=== PATIENT | male | born 1980 | race Caucasian/White ===

== ENCOUNTER 2022-04-13 02:05 | Emergency (ER) | payer MEDICARE, MEDICAID, SELFPAY ==
[2022-04-13 02:31] VITALS: BP 135/101; PULSE 118; RESP 18; TEMP 36.7; O2SAT 95; BMI 36.9
--- NOTE | 2022-04-13 02:48 | PC.NURSE ---
please see paper charting for q15m assessments, patient in line of sight of this nurse and nursing station
[2022-04-13 02:59] LABS: Add Urine Microscopic? NO; Charge for UA Resulting for Rev
[2022-04-13 03:00] LABS: Bilirubin Urine Negative (Negative); Blood Urine Negative (Negative); Glucose Urine UA Negative (Normal); Ketones Urine Negative (Negative); Leukocyte Esterase Urine Negative (Negative); Nitrate Urine Negative; Protein Urine Negative; Urine Appearance Clear (CLEAR); Urine Color Yellow (Yellow); Urobilinogen Urine 0.2 mg/dL (Negative)
[2022-04-13 03:10] LABS: Amphetamines Screen Urine Negative (Negative); Barbiturates Screen Urine Negative (Negative); Benzodiazepines Screen Urine Negative (Negative); Cocaine Screen Urine Negative (Negative); Opiate Screen Urine Negative (Negative); PCP Screen Urine Negative (Negative); THC Screen Urine Negative (Negative)
--- NOTE | 2022-04-13 03:18 | PC.NURSE ---
Dr Wallace at bedside at 0251 speaking with patient. during conversation patient became hostile, stood up, started to yell and become aggressive and charge dr wallace. dr wallace de escalated situation, patient returned to bed but continued to be very angry. 20mg geodon IM ordered, entered room at 0300 to administer, patient began to yell and repeatedly state 'no and attempt to termite exterminator helper bed. this nurse redirected the conversation to if he is in pain, patient states pain to bilat ankles. offered patient food and beverage which he accepted. asked patient what medications typically helped him in the past for psychosis, pt states several inappropriate and unrelated statements, then states haldol gives him bone pain and that geodon makes him put mugs in the back gray cloth washer and change colors and then his face flushed and he began yelling. questioned patient about seroquel, states that he has taken in the past but it isnt working now because he hasnt taken any. offered patient a pill form of medication versus IM, patient is agreeable, PO medication administered at 0318.
[2022-04-13] MEDS: OLANZapine 10 mg ODT 20 MG PO (03:19)
--- NOTE | 2022-04-13 03:26 | PC.NURSE ---
second meal and 3rd apple juice given to patient, patient is walking in room, cooperative.
--- NOTE | 2022-04-13 03:40 | PC.NURSE ---
patient laying in bed quietly watching television, ate 100% of all food and drink given.
--- NOTE | 2022-04-13 03:47 | PC.NURSE ---
sudden loud yelling from patient as he is laying in bed noted, patient is yelling at people that are not in the room. dr wallace made aware of visual and auditory hallucinations.
--- NOTE | 2022-04-13 03:49 | PC.NURSE ---
patient returned to quietly resting and watching television. 1:[address] since arrival to ed, actively monitoring and documenting activity.
--- NOTE | 2022-04-13 04:00 | PC.NURSE ---
patient making explicit gestures to staff through glass doors of exam room.
--- NOTE | 2022-04-13 04:06 | ED.C_ITS ---
HPI - Psych General: Chief Complaint: Psychiatric Symptoms Stated Complaint: MHE Time Seen by Provider: 04/13/22 02:43 Source: patient and EMS History of Present Illness: 41-year-old male with essentially an unknown history at this point. He has never been at this facility before. He endorses a history of schizophrenia to me. He presents by EMS. They were called from the [employer] truck stop up the road. They report that he is acting quite bizarrely and making strange statements. He has not endorsed any suicidality or homicidality. He denies any recent illness or fever. He admits to multiple hospitalizations in the past. He also notes that he is post to be taking Seroquel and a triglyceride medication , but that he has stopped them sometime ago. On my interview, he continues to make bizarre statements about different places across the country including [place] in [place]. He endorses persecutory ideations of being sodomized, people shooting him up with heroin, being attacked by multiple unknown people, etc. He seems to flow from 1 thing to the other without emotion. There is some word salad and sprinkled in amongst more normal statements such as I want some pain medication. I do not want hydros or the 3 liquids . MD complaint: altered mental status Onset (ago): unknown Duration: constant Relieving factors: none Exacerbating factors: none Context: not taking psychiatric medications Associated psychiatric symptoms: auditory hallucinations, visual hallucinations and delusions Associated symptoms: Reports delusions Treatments prior to arrival: none Review of Systems Const: Denies: fever(s) Eyes: Denies: change in vision ENMT: Denies: throat pain Card: Denies: chest pain Resp: Denies: dyspnea GI: Denies: abdominal pain or vomiting Musc: Reports: back pain and extremity pain Physical Exam Const: GENERAL APPEARANCE: cooperative (somewhat); not ill appearing and not frail appearing HENMT: COMMON NORMALS: normocephalic, atraumatic and Normal external nose present HEAD & SCALP: normocephalic and atraumatic FACE & SINUS: normal facial exam and face symmetric NOSE: Normal external nose present Eye: COMMON NORMALS: Equal, round and reactive pupils present and EOMs intact bilaterally PUPIL: Yes Equal, round and reactive pupils present Neck/C-Spine: COMMON NORMALS: full ROM GENERAL: Yes trachea midline Chest: CHEST: Yes Symmetrical chest wall rise Resp: COMMON NORMALS: normal respiratory effort, No use of accessory muscles and clear to auscultation bilaterally AUSCULTATION: clear to auscultation bilaterally Cardio: COMMON NORMALS: regular rate and regular rhythm RATE: regular rate RHYTHM: regular rhythm GI: COMMON NORMALS: Normal to inspection, nondistended, normoactive bowel sounds present and Soft to palpation PALPATION: Yes Soft to palpation Extremity: GENERAL: Yes edema (mild) Neuro: LEAH COMA SCALE: document GCS findings [place] coma scale eye opening: Spontaneous [place] coma scale verbal response: Confused [place] coma scale motor response: Obey commands [place] coma scale total score: 14 CRANIAL NERVES: Yes CN normal except as noted GAIT: Yes Normal gait present MOTOR EXAM: Normal motor muscle tone present throughout Psych: APPEARANCE: Yes unkempt ATTITUDE: Yes engaged and Yes agitated (at times) ACTIVITY/MOTOR BEHAVIOR: Yes appropriate eye contact, Yes psychomotor agitation and Yes fidgeting SPEECH: Yes loud and Yes Pressured speech present MOOD & AFFECT: Yes irritable and Yes expansive affect THOUGHT PROCESS: Circumstantial thought process present, disorganized and Word salad present (speech) THOUGHT CONTENT: No Suicidality present, No Homicidality present, Yes delusions and Yes Hallucination(s) present ATTENTION/CONCENTRATION: Yes attention grossly intact and Yes concentration grossly intact MEMORY /COGNITION: Yes memory grossly intact and Yes cognition grossly intact INSIGHT: Limited insight present (Psych) JUDGEMENT: Limited judgement present (Psych) Course Vital Signs: Vital signs: Vital Signs Temperature 98.0 F 04/13/22 02:31 Pulse Rate 118 H 04/13/22 02:31 Respiratory Rate 18 04/13/22 02:31 Blood Pressure 135/101 04/13/22 02:31 Pulse Oximetry 95 04/13/22 02:31 Oxygen Delivery Me thod 04/13/22 02:31 [facility] - Psych Medical Decision Making Patient refused oral medication. He was given 20 mg of oral Zyprexa Zydis. He has been calm since this time. Urinalysis is negative. Urine drug screen is negative. Serum lab work is pending. Medically he appears stable. The patient became agitated when we asked to draw his blood. He continues to deny suicidal or homicidal ideation. I went in to interview the patient again. I offered him a bed in the neuropsychiatric unit, to treat his acute on chronic psychosis. Initially, the patient agreed to admission. When told he had a consent to blood draw for admission, he recanted his consent. He asked to be discharged. He is nonviolent. He did become agitated and raise his voice. He was given his close. He left before acquiring his discharge papers. I expect we will see him back. Lab Data Laboratory Results Urine Color Yellow (Yellow) 04/13/22 02:35 Urine Appearance Clear (CLEAR) 04/13/22 02:35 Urine pH 6.0 (5-7) 04/13/22 02:35 Ur Specific [place] 1.010 (1.005-1.030) 04/13/22 02:35 Urine Protein Negative 04/13/22 02:35 Urine Glucose (UA) Negative (Normal) 04/13/22 02:35 Urine Ketones Negative (Negative) 04/13/22 02:35 Urine Blood Negative (Negative) 04/13/22 02:35 Urine Nitrate Negative 04/13/22 02:35 Urine Bilirubin Negative (Negative) 04/13/22 02:35 Urine Urobilinogen 0.2 mg/dL (Negative) 04/13/22 02:35 Ur Leukocyte Esterase Negative (Negative) 04/13/22 02:35 Urine Opiates Screen Negative ng/mL (Negative) 04/13/22 02:35 Ur Barbiturates Screen Negative ng/mL (Negative) 04/13/22 02:35 Ur Phencyclidine Scrn Negative ng/mL (Negative) 04/13/22 02:35 Ur Amphetamines Screen Negative ng/mL (Negative) 04/13/22 02:35 U Benzodiazepines Scrn Negative ng/mL (Negative) 04/13/22 02:35 Urine Cocaine Screen Negative ng/mL (Negative) 04/13/22 02:35 U Marijuana (THC) Screen Negative ng/mL (Negative) 04/13/22 02:35 Discharge Plan Discharge Patient Disposition: Home Clinical Impression: Chronic schizophrenia Discharge Orders: Discharge ED (Routine); Ordered 04/13/22 Ordered By: Chris Pastrana Patient Instructions: Psychotic Disorder (ED) Coding Level of Care Code ED Svp Business Development for Harryg Fwd Exam Comprehensive
--- NOTE | 2022-04-13 04:45 | PC.NURSE ---
attempted blood draw, patient refused, will reattempt.
--- NOTE | 2022-04-13 05:15 | PC.NURSE ---
dr wallace speaking with patient at this time, patient uncooperative with blood draw.
--- NOTE | 2022-04-13 05:27 | PC.NURSE ---
patient to be d/c per order of dr wallace. patient given seroquel rx and belongings back, and walked out of the facility with this nurse and security
== END 2022-04-13 05:29 | disposition home or self-care (01) ==
PROVIDERS: Emergency Provider Emergency Medicine
DX: F20.9 Schizophrenia, unspecified (principal)
CPT/HCPCS: 80306; 81003; 99283

== ENCOUNTER 2022-04-15 13:50 | Inpatient (IN) | payer MEDICARE, MEDICAID, SELFPAY ==
[2022-04-15 13:59] VITALS: BP 121/70; PULSE 129; RESP 18; TEMP 36.6; O2SAT 94; BMI 29.5
--- NOTE | 2022-04-15 14:06 | ED_ITS ---
HPI - General Adult General: Chief complaint: Psychiatric Symptoms Stated complaint: PSHR EVAL Time Seen by Provider: 04/15/22 13:58 History of Present Illness: HPI: [41]yo patient w/ hx of schizophrenia emergency room for evaluation of worsening psychosis. Patient tells me that he was drinking earlier today On the street when merchant police brought him to the emergency room. Patient tells me he was seen yesterday night and in the emergency room. Patient tells me the last time he drank was earlier today. He reports that aliens are trying to abduct me. On arrival, the patient is AAOx3 and cooperative with my evaluation. No focal complaints of chest pain, shortness of breath, palpitations, N/V, focal GI/ complaints. Tells me that yesterday night he had 4-5 thoughts of hurting himself. Patient does not have any active plan. Patient denies any homicidal ideation. Onset: acute on chronic Duration: ongoing Location: home Severity: severe Associated symptoms: Deny chest pain, dyspnea, nausea, rash, palpitations or vomiting Review of Systems Const: Denies: fever(s) or chills Eyes: Denies: change in vision ENMT: Denies: mouth pain Card: Denies: chest pain or palpitations Resp: Denies: dyspnea or non-productive cough GI: Denies: abdominal pain, nausea, vomiting or diarrhea : Denies: dysuria Musc: Denies: extremity pain Skin/Breast: Denies: rash or new lesions Neuro: Denies: weakness in extremities Psych: Reports: other (+psychosis) Oli/Lymph: Denies: easy bruising PFS ED PFSH: Medical History Schizophrenia Social History Smoking and tobacco status: never smoked Alcohol intake: never Substance/Drug Use: never Physical Exam Const: COMMON NORMALS: alert HENMT: COMMON NORMALS: atraumatic HEAD & SCALP: atraumatic MOUTH: moist mucous membranes not abnormal Eye: COMMON NORMALS: EOMs intact bilaterally and conjunctivae normal CONJUNCTIVA: Yes conjunctivae normal Neck/C-Spine: COMMON NORMALS: full ROM and supple Resp: COMMON NORMALS: normal respiratory effort and clear to auscultation bilaterally AUSCULTATION: clear to auscultation bilaterally Cardio: RATE: tachycardic GI: COMMON NORMALS: Soft to palpation and non-tender PALPATION: Yes Soft to palpation OTHER: No focal TTP. NO guarding rebound, guarding, rigidity. No CVA tenderness to percussion. Neg Carrillo/Neg McBurney's point tenderness, no suprabupic tenderness to palpation. Extremity: COMMON NORMALS: full ROM Neuro: SENSORIUM/ORIENTATION: Yes alert MOTOR EXAM: No Abnormal motor strength present and Other motor observations present (no focal motor deficits) Psych: COMMON NORMALS: speech normal SPEECH: Yes normal speech MOOD & AFFECT: Yes anxious Course Vital Signs: Vital signs: Vital Signs Temperature 97.8 F 04/15/22 13:59 Pulse Rate 129 H 04/15/22 13:59 Respiratory Rate 18 04/15/22 13:59 Blood Pressure 121/70 04/15/22 13:59 Pulse Oximetry 94 04/15/22 13:59 Oxygen Delivery Me thod 04/15/22 13:59 MDM - General Adult Medical Decision Making [41]yo patient w/ hx of schizophrenia presenting for psychosis and fixed delusion about alien abduction. HDS with moderate tachycardia, exam within normal limit. She is AAO x2 answer my question. However patient has fixed delusions about healing abduction. Please officer, patient has not been taking care of himself. Patient does not exhibit any signs of tremulousness or hyperdynamic vital signs to suggest delirium tremens or acute alcohol withdrawal. Patient received IVF and thiamine in the ED. Clinically the patient displays no overt toxidrome; they are well appearing, with low suspicion for toxic ingestion given history and exam. Symptoms unlikely 2/2 anemia, hypothyroidism, infection, or ICH. Workup: CBC, CMP, Lipase, salicylate/tylenol, serum ethanol, UDS, CT head Lab findings: wnl, CT head negative for any acute findings [3:330pm] On reassessment, labs and workup wnl. Patient is hemodynamically stable with no acute medical complaints. Case discussed with psychiatric provider Dr. Poon at [facility] psych inpatient with recommendation for admission Disposition: Psych Lab Data : 04/15/22 10:15 04/15/22 10:[address] 04/15/22 14:10 IMPRESSION: No acute intracranial findings. Laboratory Results WBC 10.9 10^3/uL (4.0-10.0) H 04/15/22 10:15 RBC 4.91 10^6/uL (4.1-5.3) 04/15/22 10:15 Hgb 15.5 g/dL (11.7-16.6) 04/15/22 10:15 Hct 45.4 % (42.0-52.0) 04/15/22 10:15 MCV 92.5 fl (80-94) 04/15/22 10:15 MCH 31.6 pg (28.0-34.0) 04/15/22 10:15 MCHC 34.1 g/dL (30.0-36.0) 04/15/22 10:15 RDW 12.2 % (12.1-15.1) 04/15/22 10:15 Plt Count 252 10^3/cmm (130-400) 04/15/22 10:15 MPV 10.6 fL (7.4-10.4) H 04/15/22 10:15 Neut % (Auto) 69.9 % 04/15/22 10:15 Lymph % (Auto) 20.8 % 04/15/22 10:15 Nance % (Auto) 7.1 % 04/15/22 10:15 Eos % (Auto) 1.2 % 04/15/22 10:15 Baso % (Auto) 0.6 % 04/15/22 10:15 Neut # (Auto) 7.62 10^3/uL (1.8-7.7) 04/15/22 10:15 Lymph # (Auto) 2.3 10^3/uL (0.8-4.8) 04/15/22 10:15 Nance # (Auto) 0.8 10^3/uL (0.2-0.9) 04/15/22 10:15 Eos # (Auto) 0.1 10^3/uL (0.0-0.8) 04/15/22 10:15 Baso # (Auto) 0.1 10^3/uL (0.0-0.1) 04/15/22 10:15 Nucleated RBC % (auto) 0 % 04/15/22 10:15 Nucleated RBCs # 0.0 /100WBC 04/15/22 10:15 Sodium 136 mmol/L (136-145) 04/15/22 10:15 Potassium 3.5 mmol/L (3.5-5.1) 04/15/22 10:15 Chloride 96 mmol/L (98-107) L 04/15/22 10:15 Carbon Dioxide 25 mmol/L (22-29) 04/15/22 10:15 Anion Gap 18.5 (5-19) 04/15/22 10:15 BUN 11 mg/dL (6-20) 04/15/22 10:15 Creatinine 0.8 mg/dL (0.7-1.2) 04/15/22 10:15 GFR Calculation 106.5 mL/min (90-130) 04/15/22 10:15 Glucose 126 mg/dL (65-115) H 04/15/22 10:15 Glucose 127 mg/dL (65-115) H 04/15/22 10:15 Calculated Osmolality 283 mOsm/kg (285-295) L 04/15/22 10:15 Calcium 9.2 mg/dL (8.5-10.5) 04/15/22 10:15 Total Bilirubin 0.2 mg/dL (0.15-1.2) 04/15/22 10:15 AST 14 U/L (0-40) 04/15/22 10:15 ALT 16 U/L (0-41) 04/15/22 10:15 Alkaline Phosphatase 85 U/L (40-130) 04/15/22 10:15 Total Protein 6.9 g/dL (6.6-8.7) 04/15/22 10:15 Albumin 4.2 g/dL (3.5-5.2) 04/15/22 10:15 Globulin 2.7 g/dL (1.3-4.6) 04/15/22 10:15 Lipase 18 U/L (13-60) 04/15/22 10:15 TSH 1.32 uIU/mL (0.27-4.20) 04/15/22 10:15 Free T4 1.11 ng/dL (0.82-1.77) 04/15/22 10:15 Salicylates 0.4 mg/dL (3-10) L 04/15/22 10:15 Acetaminophen < 5.0 ug/mL (10-30) L 04/15/22 10:15 Ethyl Alcohol < 10 mg/dL (0-10) 04/15/22 10:15 Imaging Data Other Imaging: Radiologist's impression: [facility] [address] [place] [address] CT Scan Report Signed Patient: Manjinder Emmanuel Unit #: [id number] : [id number] Age/Sex: 41 / M ADM Date: 04/15/22 Loc: ER Room/Bed: Attending Dr: Ordering Provider/Ordering MD: Kalen Carrizales MD Date of Service: 04/15/22 Procedure(s): CT head wo con* [id number] Accession Number(s): [id number] Report Number: [id number] WS: [id number] CT HEAD TECHNIQUE: Noncontrast CT of the head obtained from the skullbase to the vertex. CLINICAL INFORMATION: ams COMPARISON: None. DLP: 1139.[address] scans at [facility] use at least one of these dose optimization techniques: automated exposure control; mA and/or kV adjustment per patient size (includes targeted exams where dose is matched to clinical indication); or iterative reconstruction. FINDINGS: No evidence of intracranial hemorrhage or mass effect. Ventricular system and basal cisterns are patent. No extra-axial fluid collections. No evidence of mass or mass effect. Normal mccann-white differentiation. Paranasal sinuses and mastoid air cells are well aerated. .Normal visualized soft tissues. CT/CT head wo con* [id number] IMPRESSION: No acute intracranial findings. ? Dictated By: Armando Torres MD Signed By: Armando Torres MD Signed Date/Time: 04/15/22 1455 DD/ 1446 Discharge Plan Discharge Patient Disposition: Admitted As Inpatient Clinical Impression: Psychosis, Schizophrenia Condition: Stable Coding Level of Care Code ED Track Watchman for Chg Fwd Exam Comprehensive
--- NOTE | 2022-04-15 14:10 | CT_ITS ---
WS: [id number] CT HEAD TECHNIQUE: Noncontrast CT of the head obtained from the skullbase to the vertex. CLINICAL INFORMATION: ams COMPARISON: None. DLP: 1139.[address] scans at [facility] use at least one of these dose optimization techniques: automated e xposure control; mA and/or kV adjustment per patient size (includes targeted exams where dose is matc hed to clinical indication); or iterative reconstruction. FINDINGS: No evidence of intracranial hemorrhage or mass effect. Ventricular system and basal cisterns are heaton nt. No extra-axial fluid collections. No evidence of mass or mass effect. Normal mccann-white different iation. Paranasal sinuses and mastoid air cells are well aerated. .Normal visualized soft tissues. CT/CT head wo con* [id number] IMPRESSION: No acute intracranial findings.
[2022-04-15 14:22] LABS: Basophils # 0.1 10^3/uL (0.0-0.1); Basophils % 0.6 %; Eosinophils # 0.1 10^3/uL (0.0-0.8); Eosinophils % 1.2 %; Hematocrit 45.4 % (42.0-52.0); Hemoglobin 15.5 g/dL (11.7-16.6); Lymphocytes # 2.3 10^3/uL (0.8-4.8); Lymphocytes % 20.8 %; Mean Corpuscular HGB Conc 34.1 g/dL (30.0-36.0); Mean Corpuscular Hemoglobin 31.6 pg (28.0-34.0); Mean Corpuscular Volume 92.5 fl (80-94); Mean Platelet Volume 10.6 fL (7.4-10.4); Monocytes # 0.8 10^3/uL (0.2-0.9); Monocytes % 7.1 %; Neutrophils # 7.62 10^3/uL (1.8-7.7); Neutrophils % 69.9 %; Nucleated Red Blood Cells % 0 %; Platelet Count 252 10^3/cmm (130-400); Red Blood Count 4.91 10^6/uL (4.1-5.3); Red Cell Distribution Width 12.2 % (12.1-15.1); White Blood Count 10.9 10^3/uL (4.0-10.0)
[2022-04-15 14:44] LABS: Glucose 127 mg/dL (65-115)
[2022-04-15 14:55] LABS: Alanine Aminotransferase 16 U/L (0-41); Albumin Level 4.2 g/dL (3.5-5.2); Alkaline Phosphatase 85 U/L (40-130); Aspartate Amino Transferase 14 U/L (0-40); Blood Urea Nitrogen 11 mg/dL (6-20); Calcium 9.2 mg/dL (8.5-10.5); Carbon Dioxide 25 mmol/L (22-29); Chloride 96 mmol/L (98-107); Free T4 Free Thyroxine 1.11 ng/dL (0.82-1.77); Globulin 2.7 g/dL (1.3-4.6); Glomerular Filtration Rate 106.5 mL/min (90-130); Glucose 126 mg/dL (65-115); Lipase 18 U/L (13-60); Osmolality Calculated 283 mOsm/kg (285-295); Salicylate 0.4 mg/dL (3-10); Sodium 136 mmol/L (136-145); Thyroid Stimulating Hormone 1.32 uIU/mL (0.27-4.20); Total Bilirubin 0.2 mg/dL (0.15-1.2); Total Protein 6.9 g/dL (6.6-8.7)
[2022-04-15 14:57] LABS: Acetaminophen < 5.0 ug/mL (10-30); Alcohol Level < 10 mg/dL (0-10)
[2022-04-15 14:58] LABS: Anion Gap 18.5 (5-19); Potassium 3.5 mmol/L (3.5-5.1)
[2022-04-15] MEDS: sodium chloride 0.9% 1,000 ML 999 ML IV ×2 (15:10→16:01)
[2022-04-15 15:15] VITALS: PULSE 106; O2SAT 91
[2022-04-15 15:18] LABS: Folate Level 8.8 ng/mL (4.5-32.2)
[2022-04-15 15:58] VITALS: BP 102/63; PULSE 95; O2SAT 95
[2022-04-15 17:01] LABS: Amphetamines Screen Urine Negative (Negative); Barbiturates Screen Urine Negative (Negative); Benzodiazepines Screen Urine Negative (Negative); Cocaine Screen Urine Negative (Negative); Opiate Screen Urine Negative (Negative); PCP Screen Urine Negative (Negative); THC Screen Urine Negative (Negative)
[2022-04-15 17:13] VITALS: PULSE 92; O2SAT 97
[2022-04-15 17:49] VITALS: BP 123/73; PULSE 108; RESP 18; TEMP 36.6; O2SAT 96
--- NOTE | 2022-04-15 18:38 | PC.NURSE ---
ADMISSION NOTE 150-2 This is a 41 year old man admitted to [facility] from the ED. History of schizophrenia. Patient tells me that he was drinking earlier today. On the street when police captain senior brought him to the emergency room. Patient tells me he was seen yesterday night and in the emergency room. Patient tells me the last time he drank was earlier today. He reports that aliens are trying to abduct me. Upon arrival to the [facility] patients speech is animated at times during conversation. Pt is guarded and repeats sentences multiple times. Pt is calm and cooperative. BAL and drug screen negative.
[2022-04-15 21:01] VITALS: RESP 18
[2022-04-16 06:00] VITALS: BP 129/84; PULSE 78; RESP 17; TEMP 36.8; O2SAT 93
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
--- NOTE | 2022-04-16 11:08 | PC.NURSE ---
0800- pt declined zyprexa or haldol for symptom relief of visual hallucinations of sexual images even if there are no people
[2022-04-16 14:00] VITALS: BP 130/79; PULSE 96; RESP 15; TEMP 36.9; O2SAT 95
[2022-04-16] MEDS: OLANZapine 5 mg ODT PO (20:19)
[2022-04-16 20:44] VITALS: BP 149/95; PULSE 92; RESP 17; TEMP 36.8; O2SAT 98
[2022-04-17 06:00] VITALS: BP 165/118; PULSE 74; RESP 16; TEMP 36.5; O2SAT 97
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
[2022-04-17 14:00] VITALS: BP 150/97; PULSE 80; RESP 15; TEMP 36.6; O2SAT 96
--- NOTE | 2022-04-17 15:50 | W.PM.NPUPNS ---
Subjective NPU Subjective: Patient presents today reporting that he is open to starting Zyprexa. He was unclear whether he wanted to move to the injection but he does feel that he does okay with Zyprexa. He was really disorganized and talking about random things. He is at a point where he is unaware of his level of disorganization. As he wandered off in conversation talking about random subjects that were disconnected. Mental Status Exam MSE Comments: This is an overweight white man in hospital scrubs with adequate grooming and limited eye contact. At times turning completely away or significantly diverting his eyes. No abnormal movements except for mild psychomotor retardation. Cooperative with exam in mild distress. Speech was limited and decreased rate and decreased volume. Mood described as Okay , affect is very odd. Thought process, disorganized. Thought content: patient denies suicidal or homicidal ideation, no delusions reported but delusions noted, and endorses auditory and visual hallucinations but would not answer if he was experiencing them currently. Attention and concentration are mostly intact and memory appeared mostly reliable but none were formally tested. He is alert and oriented three times. Insight and judgment are impaired. Impulse control is impaired. Vitals/I&O/Wt Last Vital Signs Temp 98 F 04/17/22 14:00 Pulse 80 04/17/22 14:00 Resp 15 04/17/22 14:00 BP 150/97 04/17/22 14:00 Pulse Ox 96 04/17/22 14:00 O2 Del Method 04/15/22 17:50 Data NPU : 04/15/22 10:15 04/15/22 10:15 A&P Assessment and plan (1) Chronic schizophrenia: (2) Psychosis: (3) Schizophrenia: Plan This is a 41 year old white man with a history of trauma and genetic loading for mental health and addiction issues who present very disorganized reporting he had drank and it was recommended that he come to the hospital by someone. 1. Continue current medications. Start Zyprexa 10 mg p.o. nightly with goal to transfer him over to Zyprexa Relprevv. 2. Encourage individual, group and milieu therapy 3. Continue q-15 minute check for safety 4. Recommend sober living treatment at the highest level of care to which the patient is willing to commit. Involuntary Hold Information 96 Hour Hold: 96 Hour Involuntary Admission: No Attestations NPU Medical Necessity Statement*: Inpatient hospitalization is medically necessary and the clinically appropriate intervention at this time. We will monitor medications and make changes as indicated. Likely length of stay is three to five days. Coding Level of Care Code Acute Telephone Order Clerk Room Service for [facility] Fwd Diagnoses Chronic schizophrenia F20.9 Psychosis F29 Schizophrenia F20.9
--- NOTE | 2022-04-17 18:07 | PC.NURSE ---
pt is highly concerned about not getting social security direct pay card that he lost. this nurse found number to call. customer service for [employer] is [phone]. pt given number and will call. another person was on the phone, so this nurse told pt staff would help either this pm or tomorrow am to help pt get ahold of them to cancel previous card. however, it is unsure where the new card will be sent to.
[2022-04-17] MEDS: OLANZapine 10 mg TABLET PO (20:22)
[2022-04-17 20:25] VITALS: BP 142/81; PULSE 87; RESP 18; O2SAT 95
[2022-04-18 06:00] VITALS: BP 143/95; PULSE 84; RESP 18; O2SAT 98
[2022-04-18] MEDS: nicotine 2 mg Gum BUCCAL ×2 (11:44→14:16)
[2022-04-18 14:00] VITALS: BP 134/90; PULSE 103; RESP 16; TEMP 36.6; O2SAT 97
--- NOTE | 2022-04-18 15:17 | P.NPUPN_ITS ---
Subjective NPU Subjective: Patient presents today continuing to be disorganized but having some spontaneous functioning and behaviors. He asking about the medication we discussed getting some regular doses of Zyprexa in before he made any judgment about his efficacy. He had some disorganized ranting about his travels and going to different places ended up with confusing talk. Mental Status Exam MSE Comments: This is an overweight white man in hospital scrubs with adequate grooming and limited eye contact. At times turning completely away or significantly diverting his eyes. No abnormal movements except for mild psych omotor retardation. Cooperative with exam in mild distress. Speech was limited and decreased rate and decreased volume. Mood described as Okay , affect is very odd. Thought process, disorganized. Thought content: patient denies suicidal or homicidal ideation, no delusions reported but delusions noted, and endorses auditory and visual hallucinations but would not answer if he was experiencing them currently. Attention and concentration are mostly intact and memory appeared mostly reliable but none were formally tested. He is alert and oriented three times. Insight and judgment are impaired. Impulse control is impaired. Vitals/I&O/Wt Last Vital Signs Temp 98.3 F 04/18/22 21:07 Pulse 88 04/18/22 21:07 Resp 18 04/18/22 21:07 BP 132/77 04/18/22 21:07 Pulse Ox 95 04/18/22 21:07 O2 Del Method 04/18/22 06:00 Data NPU : 04/15/22 10:15 04/15/22 10:15 A&P Assessment and plan (1) Chronic schizophrenia: (2) Psychosis: (3) Schizophrenia: Plan This is a 41 year old white man with a history of trauma and genetic loading for mental health and addiction issues who present very disorganized reporting he had drank and it was recommended that he come to the hospital by someone. 1. Continue current medications. Started Zyprexa 10 mg p.o. nightly with goal to transfer him over to Zyprexa Relprevv. 2. Encourage individual, group and milieu therapy 3. Continue q-15 minute check for safety 4. Recommend sober living treatment at the highest level of care to which the patient is willing to commit. Involuntary Hold Information 96 Hour Hold: 96 Hour Involuntary Admission: No Attestations NPU Medical Necessity Statement*: Inpatient hospitalization is medically necessary and the clinically appropriate intervention at this time. We will monitor medications and make changes as indicated. Likely length of stay is 7-10 days. Coding Level of Care Code Acute Protective Signal Repairer Helper for g Fwd Diagnoses Chronic schizophrenia F20.9 Psychosis F29 Schizophrenia F20.9
[2022-04-18] MEDS: OLANZapine 10 mg TABLET PO (20:29)
[2022-04-18 21:07] VITALS: BP 132/77; PULSE 88; RESP 18; TEMP 36.8; O2SAT 95
[2022-04-19 06:00] VITALS: BP 144/88; PULSE 82; RESP 18; TEMP 36.5; O2SAT 97
[2022-04-19] MEDS: nicotine 21 mg Patch 1 PATCH TRANSDERMA (09:23)
--- NOTE | 2022-04-19 10:48 | W.PM.NPUPNS ---
Subjective NPU Subjective: Patient presents today still speaking mostly nonsense and having long rants that had no logical basis. He continues to have limited insight into the significance of his disorganization and was very focused on other locations and was able to articulate wanting to go to the bus to get to some different regions [place] the [place]. Mental Status Exam MSE Comments: This is an overweight white man in hospital scrubs with adequate grooming and limited eye contact. At times turning completely away or significantly diverting his eyes. No abnormal movements except for mild psychomotor retardation. Cooperative with exam in mild distress. Speech was limited and decreased rate and decreased volume. Mood described as Okay , affect is very odd. Thought process, very disorganized. Thought content: patient denies suicidal or homicidal ideation, no delusions reported but delusions noted, and endorses auditory and visual hallucinations but would not answer if he was experiencing them currently. Attention and concentration are mostly intact and memory appeared mostly reliable but none were formally tested. He is alert and oriented three times. Insight and judgment are impaired. Impulse control is impaired. Vitals/I&O/Wt Last Vital Signs Temp 97.7 F 04/19/22 06:00 Pulse 82 04/19/22 06:00 Resp 18 04/19/22 06:00 BP 144/88 04/19/22 06:00 Pulse Ox 97 04/19/22 06:00 O2 Del Method 04/18/22 06:00 Weight last 48 hrs Weight 104.689 kg Data NPU : 04/15/22 10:15 04/15/22 10:15 A&P Assessment and plan (1) Chronic schizophrenia: (2) Psychosis: (3) Schizophrenia: Plan This is a 41 year old white man with a history of trauma and genetic loading for mental health and addiction issues who present very disorganized reporting he had drank and it was recommended that he come to the hospital by someone. 1. Continue current medications. Started Zyprexa 10 mg p.o. nightly with goal to transfer him over to Zyprexa Relprevv. We will consider increasing Zyprexa tomorrow. 2. Encourage individual, group and milieu therapy 3. Continue q-15 minute check for safety 4. Recommend sober living treatment at the highest level of care to which the patient is willing to commit. 5. Patient on a 96-hour hold. Involuntary Hold Information 96 Hour Hold: 96 Hour Involuntary Admission: No Attestations NPU Medical Necessity Statement*: Inpatient hospitalization is medically necessary and the clinically appropriate intervention at this time. We will monitor medications and make changes as indicated. Likely length of stay is 7-10 days. Coding Level of Care Code Acute Life Science Technician for [facility] Fwd Diagnoses Chronic schizophrenia F20.9 Psychosis F29 Schizophrenia F20.9
[2022-04-19] MEDS: acetaminophen 325 mg Tablet 650 MG PO ×2 (11:29→18:46)
[2022-04-19 14:00] VITALS: BP 152/98; PULSE 99; RESP 17; TEMP 36.8; O2SAT 94
[2022-04-19] MEDS: OLANZapine 10 mg TABLET PO (20:03)
[2022-04-19 20:25] VITALS: BP 152/86; PULSE 90; RESP 18; TEMP 36.7; O2SAT 96
[2022-04-20 06:00] VITALS: BP 131/85; PULSE 70; RESP 17; TEMP 36.4; O2SAT 96
[2022-04-20] MEDS: nicotine 21 mg Patch 1 PATCH TRANSDERMA (09:24)
--- NOTE | 2022-04-20 11:49 | P.NPUPN_ITS ---
Subjective NPU Subjective: Patient presents today reporting that he was doing fine. He spent about 20 minutes rambling without any pauses about nothing in particular. He started out talking about working out and asking about this advertising copywriter's strategy for working out. That turned into unrecognizable connections to multiple subjects. He denies any problems or current medication. Mental Status Exam MSE Comments: This is an overweight white man in hospital scrubs with adequate grooming and limited eye contact. At times turning completely away or significantly diverting his eyes. No abnormal movements except for mild psych omotor retardation. Cooperative with exam in mild distress. Speech was limited and decreased rate and decreased volume. Mood described as Okay , affect is very odd. Thought process, very disorganized. Thought content: patient denies suicidal or homicidal ideation, no delusions reported but delusions noted, and endorses auditory and visual hallucinations but would not answer if he was experiencing them currently. Attention and concentration are mostly intact and memory appeared mostly reliable but none were formally tested. He is alert and oriented three times. Insight and judgment are impaired. Impulse control is impaired. Vitals/I&O/Wt Last Vital Signs Temp 98.2 F 04/20/22 21:21 Pulse 103 H 04/20/22 21:21 Resp 18 04/20/22 21:21 BP 158/107 04/20/22 21:21 Pulse Ox 96 04/20/22 21:21 O2 Del Method 04/20/22 14:00 Weight last 48 hrs Weight 104.689 kg Data NPU : 04/15/22 10:15 04/15/22 10:15 A&P Assessment and plan (1) Chronic schizophrenia: (2) Psychosis: (3) Schizophrenia: Plan This is a 41 year old white man with a history of trauma and genetic loading for mental health and addiction issues who present very disorganized reporting he had drank and it was recommended that he come to the hospital by someone. 1. Continue current medications. Started Zyprexa 10 mg p.o. nightly. Increase it to 15 mg with goal to transfer him over to Zyprexa Relprevv. 2. Encourage individual, group and milieu therapy 3. Continue q-15 minute check for safety 4. Recommend sober living treatment at the highest level of care to which the patient is willing to commit. 5. Patient on a 96-hour hold. Involuntary Hold Information 96 Hour Hold: 96 Hour Involuntary Admission: No Attestations NPU Medical Necessity Statement*: Inpatient hospitalization is medically necessary and the clinically appropriate intervention at this time. We will monitor medications and make changes as indicated. Likely length of stay is 7-10 days. Coding Level of Care Code Acute Help Desk Technician for [facility] Fwd Diagnoses Chronic schizophrenia F20.9 Psychosis F29 Schizophrenia F20.9
[2022-04-20] MEDS: ibuprofen 600 mg Tablet PO ×2 (13:19→19:44)
[2022-04-20 14:00] VITALS: BP 145/86; PULSE 93; RESP 18; TEMP 36.6; O2SAT 97
[2022-04-20] MEDS: nicotine 2 mg Gum BUCCAL (19:45)
[2022-04-20] MEDS: OLANZapine 10 mg TABLET PO (20:46)
[2022-04-20 21:21] VITALS: BP 158/107; PULSE 103; RESP 18; TEMP 36.8; O2SAT 96
[2022-04-21 06:00] VITALS: BP 135/87; PULSE 78; RESP 16; TEMP 36.4; O2SAT 97
[2022-04-21] MEDS: nicotine 2 mg Gum BUCCAL ×2 (09:06→18:44)
[2022-04-21] MEDS: ibuprofen 600 mg Tablet PO (13:15)
[2022-04-21 14:00] VITALS: BP 118/68; PULSE 83; RESP 16; TEMP 36.6; O2SAT 95
[2022-04-21] MEDS: acetaminophen 325 mg Tablet 650 MG PO ×2 (14:51→19:57)
--- NOTE | 2022-04-21 17:06 | W.PM.NPUPNS ---
Subjective NPU Subjective: Patient presented today continued to report that he was having pain in his leg. We agreed if there were additional complaints or he asked for higher pain medication that we would get a medical consult. We also had a discussion about the medical hold and how it works. He thought he would be getting out tomorrow. We discussed the actual process. Him thinking that was a sign of him having a little more organization. He was also able to get of hold of his debit card which has thousands of dollars on it and should assist the treatment team in helping him but also could make him more vulnerable. We discussed the likelihood of a 21-day-hold. Mental Status Exam MSE Comments: This is an overweight white man in hospital scrubs with adequate grooming and limited eye contact. At times turning completely away or significantly diverting his eyes. No abnormal movements except for mild psychomotor retardation. Cooperative with exam in mild distress. Speech was limited and decreased rate and decreased volume. Mood described as Okay , affect is very odd. Thought process, more organized. Thought content: patient denies suicidal or homicidal ideation, no delusions reported but delusions noted, and endorses auditory and visual hallucinations but would not answer if he was experiencing them currently. Attention and concentration are mostly intact and memory appeared more reliable but none were formally tested. He is alert and oriented three times. Insight and judgment are impaired. Impulse control is impaired. Vitals/I&O/Wt Last Vital Signs Temp 97.9 F 04/21/22 20:40 Pulse 75 04/21/22 20:40 Resp 18 04/21/22 20:40 BP 128/70 04/21/22 20:40 Pulse Ox 95 04/21/22 20:40 O2 Del Method 04/20/22 14:00 Data NPU : 04/15/22 10:15 04/15/22 10:15 A&P Assessment and plan (1) Chronic schizophrenia: (2) Psychosis: (3) Schizophrenia: Plan This is a 41 year old white man with a history of trauma and genetic loading for mental health and addiction issues who present very disorganized reporting he had drank and it was recommended that he come to the hospital by someone. 1. Continue current medications. Started Zyprexa 10 mg p.o. nightly. Increase it to 15 mg with goal to transfer him over to Zyprexa Relprevv. 2. Encourage individual, group and milieu therapy 3. Continue q-15 minute check for safety 4. Recommend sober living treatment at the highest level of care to which the patient is willing to commit. 5. Patient on a 96-hour hold. Involuntary Hold Information 96 Hour Hold: 96 Hour Involuntary Admission: No Attestations NPU Medical Necessity Statement*: Inpatient hospitalization is medically necessary and the clinically appropriate intervention at this time. We will monitor medications and make changes as indicated. Likely length of stay is 6-9 days. Coding Level of Care Code Acute Vending Machine Collector for [facility] Fwd Diagnoses Chronic schizophrenia F20.9 Psychosis F29 Schizophrenia F20.9
--- NOTE | 2022-04-21 17:14 | PM.CONSULT ---
Providers/Reason For Consult Consulting Physician/Specialty*: Hospitalist Reason for Consult*: Left leg pain Attending Physician: Brayan Dang MD History of Present Illness History of Present Illness 41-year-old gentleman with schizophrenia, hypertension, admitted due to acute psychosis with disorganized thinking, has reported to staff complained of left lower extremity pain, has required Tylenol and ibuprofen repeat doses and has been reported limiting his ambulation. History is very difficult to obtain. He tells me that he may have fallen over a pothole that was a grate, and states he did hit his leg and has been continuing to have pain in his left lower leg. When asked to narrow down the location, states the whole bone . Does not seem to be able to narrow down precisely, but seems to be somewhere between toes and below the knee. States previously that after taking Tylenol had red and blue discoloration. Here the details get somewhat more hazy as he states he has had imaging of the leg sometime in December-January, although when asked whether imaging showed no fractures states just in the knuckle pointing to the right foot, then when asked to confirm if had a broken bone in his foot, states no, not broken , and says that he was offered a boot. We do not have prior imaging here. He tells me that he had been previously assessed at [facility] but then went on to [facility]. Review of Systems Const: Denies: fever(s), chills, body aches or malaise Eyes: Denies: change in vision, eye discomfort or eye redness ENMT: Denies: throat pain, oral sores or ear or mastoid pain Card: Denies: chest pain, edema, pre-syncope or dyspnea on exertion Resp: Denies: dyspnea, productive cough, change in phlegm color or hemoptysis GI: Denies: abdominal pain, nausea, vomiting, diarrhea, constipation, hematochezia or melena : Denies: flank pain, difficulty urinating, urinary frequency or hematuria Musc: Reports: extremity pain (LLE); Denies: back pain, joint swelling or joint redness Skin/Breast: Denies: rash or new lesions Neuro: Denies: headache(s), numbness in extremities, weakness in extremities, dizziness, confusion or seizure-like activity Endo: Denies: polyuria or polydipsia Oli/Lymph: Denies: easy bleeding or tender lymph nodes All/Imm: Denies: urticaria or tongue swelling Medications/Allergies Home Medications Medication Instructions Recorded Confirmed Last Taken Type No Known Home Medications 04/15/22 04/15/22 Unknown History Allergies Allergy/AdvReac Type Severity Reaction Status Date / Time No Known Allergies Allergy Verified 04/15/22 14:40 Current Medications Generic Name Dose Route Start Last Admin Trade Name Freq PRN Reason Stop Dose Admin Acetaminophen 650 mg 04/15/22 17:49 04/21/22 14:51 Acetaminophen 325 Mg Tablet PO 650 mg Q4H PRN Administration MILD PAIN Ibuprofen 600 mg 04/20/22 13:09 04/21/22 13:15 Ibuprofen 600 Mg Tablet PO 600 mg Q6H PRN Administration MODERATE PAIN Nicotine 1 patch 04/15/22 17:49 04/20/22 09:24 Nicotine 21 Mg Patch TRANSDERMA 1 patch DAILY PRN Administration NICOTINE WITHDRAWAL Nicotine Polacrilex 2 mg 04/15/22 17:49 04/21/22 09:06 Nicotine 2 Mg Gum BUCCAL 2 mg Q2H PRN Administration NICOTINE WITHDRAWAL Olanzapine 5 mg 04/15/22 17:49 04/16/22 20:19 Olanzapine 5 Mg Odt PO 5 mg Q4H PRN Administration Agitation/Psychosis Olanzapine 10 mg 04/17/22 21:00 04/20/22 20:46 Olanzapine 10 Mg Tablet PO 10 mg BEDTIME JLUIS Administration PFSH Acute PFSH: Medical History HTN (hypertension) Schizophrenia Family History Father Cancer Social History Smoking and tobacco status: current every day smoker Alcohol intake: former Substance/Drug Use: never Vitals/I&O/Wt Last Vital Signs Temp 98 F 04/21/22 14:00 Pulse 83 04/21/22 14:00 Resp 16 04/21/22 14:00 BP 118/68 04/21/22 14:00 Pulse Ox 95 04/21/22 14:00 O2 Del Method 04/20/22 14:00 Physical Exam Const: COMMON NORMALS: alert GENERAL APPEARANCE: cooperative NUTRITIONAL APPEARANCE: overweight ORIENTATION/CONSCIOUSNESS: Yes awake HENMT: COMMON NORMALS: oropharynx normal Neck/C-Spine: COMMON NORMALS: no JVD Resp: COMMON NORMALS: normal respiratory effort and clear to auscultation bilaterally AUSCULTATION: clear to auscultation bilaterally Cardio: COMMON NORMALS: no JVD, regular rhythm, S1 normal heart sound present, S2 normal heart sound present and No murmurs present (Cardio) RHYTHM: regular rhythm HEART SOUNDS: S1 normal heart sound present and S2 normal heart sound present GI: COMMON NORMALS: Normal to inspection, nondistended, normoactive bowel sounds present, Soft to palpation and non-tender PALPATION: Yes Soft to palpation Extremity: COMMON NORMALS: no joint enlargement and no pedal edema OTHER: Good left DP pulses, extremity perfused. Appears to report difficulty with weightbearing on left lower extremity, but otherwise appears to have good range of motion without any obvious swelling or erythema of any of the joints of left lower extremity, with no pain with PROM ankle, knee or hip including internal or external rotation. Extremity does not appear swollen compared to the right. No discoloration or bruising. Neuro: COMMON NORMALS: moves all extremities SENSORIUM/ORIENTATION: Yes alert Skin: COMMON NORMALS: no rashes or lesions noted GENERAL SKIN EXAM: no rashes or lesions noted Data : 04/15/22 10:15 04/15/22 10:15 A&P Assessment and plan (1) Left leg pain: It is difficult to discern exactly where his pain is located. He seems to narrow down possibly to somewhere between his toes and the knee. Does not appear to have any obvious injury. PROM is good, no bruising, swelling, erythema. Does report falling over a pothole or a montessori teacher grate. Reports some prior imaging at outside facility, but seems to report imaging of the right leg with possibly some injury to the right foot. Currently no complaints there. Will assess with x-ray of left foot as well as tib-fib. Continue Tylenol, ibuprofen as needed. Weightbearing as tolerating. (2) Psychosis: (3) Schizophrenia: Consult Attestations Medical Necessity Statement: Continue admission for assessment management of psychosis and schizophrenia. Coding Level of Care Code Acute Emergency Department Physician for [facility] Diagnoses Left leg pain M79.605 Psychosis F29 Schizophrenia F20.9
--- NOTE | 2022-04-21 17:25 | XRR_ITS ---
PROCEDURE INFORMATION: Exam: XR Left Foot Exam date and time: 04/21/2022 7:33 PM Age: 41 years old Clinical indication: Pain; Foot; Left; Additional info: Pain after fall TECHNIQUE: Imaging protocol: Radiologic exam of the Left foot. Views: 3 or more views. COMPARISON: No relevant prior studies available. FINDINGS: Bones/joints: Normal. Soft tissues: Normal. XR/XR foot LT min 3V* [id number] IMPRESSION: No acute findings.
--- NOTE | 2022-04-21 17:25 | XRR_ITS ---
PROCEDURE INFORMATION: Exam: XR Left Tibia and Fibula Exam date and time: 04/21/2022 7:33 PM Age: 41 years old Clinical indication: Pain; Lower leg; Left; Additional info: Lle pain after fall TECHNIQUE: Imaging protocol: Radiologic exam of the Left tibia and fibula. Views: 2 views. COMPARISON: No relevant prior studies available. FINDINGS: Bones/joints: Normal. Soft tissues: Normal. XR/XR tibia fibula LT 2V [id number] IMPRESSION: No acute findings.
--- NOTE | 2022-04-21 18:25 | PC.NURSE ---
radiology called and requested staff to bring patient for xray. this nurse called back and stated since these could be done portably, it would be best if they came to the unit due to staffing.
[2022-04-21] MEDS: OLANZapine 10 mg TABLET PO (19:57)
[2022-04-21 20:40] VITALS: BP 128/70; PULSE 75; RESP 18; TEMP 36.6; O2SAT 95
[2022-04-22 06:00] VITALS: RESP 18
[2022-04-22] MEDS: acetaminophen 325 mg Tablet 650 MG PO (10:41)
[2022-04-22] MEDS: nicotine 2 mg Gum BUCCAL ×3 (10:42→19:05)
--- NOTE | 2022-04-22 12:13 | P.NPUPN_ITS ---
Subjective NPU Subjective: Patient presented today somewhat disconnected from the conversation. Not in the disorganized way he has been with almost like he was frustrated or upset with this principal technical writer. Possibly he was upset about not receiving his card in the mail. We did discuss sitting down in the hospital being a some what more complicated task and that he must go to the mailroom which can add a day or 2 to the process. He reports he is eating and sleeping fine. Mental Status Exam MSE Comments: This is an overweight white man in hospital scrubs with adequate grooming and limited eye contact. At times turning completely away or significantly diverting his eyes. No abnormal movements except for mild psychomotor retardation. Cooperative with exam in mild distress. Speech was limited and decreased rate and decreased volume. Mood described as Okay , affect is less odd. Thought process, more organized. Thought content: patient denies suicidal or homicidal ideation, no delusions reported but delusions noted, but denied auditory or visual hallucinations. Attention and concentration are mostly intact and memory appeared more reliable but none were formally tested. He is alert and oriented three times. Insight and judgment are impaired. Impulse control is impaired. Vitals/I&O/Wt Last Vital Signs Temp 97.9 F 04/21/22 20:40 Pulse 75 04/21/22 20:40 Resp 18 04/21/22 20:40 BP 128/70 04/21/22 20:40 Pulse Ox 95 04/21/22 20:40 O2 Del Method 04/20/22 14:00 Data NPU : 04/15/22 10:15 04/15/22 10:15 A&P Assessment and plan (1) Left leg pain: (2) Psychosis: (3) Schizophrenia: (4) Chronic schizophrenia: Plan This is a 41 year old white man with a history of trauma and genetic loading for mental health and addiction issues who present very disorganized reporting he had drank and it was recommended that he come to the hospital by someone. 1. Continue current medications. Started Zyprexa 10 mg p.o. nightly. Increased it to 15 mg with goal to transfer him over to Zyprexa Relprevv. 2. Encourage individual, group and milieu therapy 3. Continue q-15 minute check for safety 4. Recommend sober living treatment at the highest level of care to which the patient is willing to commit. 5. Patient on a 96-hour hold. Plan for 21-day-hold. Involuntary Hold Information 96 Hour Hold: 96 Hour Involuntary Admission: No Attestations NPU Medical Necessity Statement*: Inpatient hospitalization is medically necessary and the clinically appropriate intervention at this time. We will monitor medications and make changes as indicated. Likely length of stay is 6-9 days. Coding Level of Care Code Acute Lead Mechanical Engineer for [facility] Diagnoses Left leg pain M79.605 Psychosis F29 Schizophrenia F20.9 Chronic schizophrenia F20.9
[2022-04-22 14:00] VITALS: BP 151/95; PULSE 97; RESP 18; TEMP 36.6; O2SAT 95
--- NOTE | 2022-04-22 14:43 | P.PN_ITS ---
Subjective Subjective: Still disorganized thinking, he does not really tell me how his leg is doing but does not seem to have pain at least at rest. Allows himself to be examined. Discussed with him results of x-rays. Discussing with him follow-up with primary provider, it seems he is not yet thought of whether he will stay in the area after discharge or move on. Discussed with him if he should stay here, could establish follow-up with primary provider for reassessment. Vitals/I&O/Wt Last Vital Signs Temp 97.9 F 04/21/22 20:40 Pulse 75 04/21/22 20:40 Resp 18 04/22/22 06:00 BP 128/70 04/21/22 20:40 Pulse Ox 95 04/21/22 20:40 O2 Del Method 04/20/22 14:00 Physical Exam Const: COMMON NORMALS: alert GENERAL APPEARANCE: cooperative NUTRITIONAL APPEARANCE: overweight ORIENTATION/CONSCIOUSNESS: Yes awake HENMT: COMMON NORMALS: oropharynx normal Neck/C-Spine: COMMON NORMALS: no JVD Resp: COMMON NORMALS: normal respiratory effort and clear to auscultation bilaterally AUSCULTATION: clear to auscultation bilaterally Cardio: COMMON NORMALS: no JVD, regular rhythm, S1 normal heart sound present, S2 normal heart sound present and No murmurs present (Cardio) RHYTHM: regular rhythm HEART SOUNDS: S1 normal heart sound present and S2 normal heart sound present GI: COMMON NORMALS: Normal to inspection, nondistended, normoactive bowel sounds present, Soft to palpation and non-tender PALPATION: Yes Soft to palpation Extremity: COMMON NORMALS: no joint enlargement and no pedal edema OTHER: L extremity perfused. No swelling. No erythema, bruising or any wounds. Good range of motion without any obvious swelling or erythema of any of the joints of left lower extremity, with no pain with PROM ankle, knee or hip including internal or external rotation. Neuro: COMMON NORMALS: moves all extremities SENSORIUM/ORIENTATION: Yes alert Skin: COMMON NORMALS: no rashes or lesions noted GENERAL SKIN EXAM: no rashes or lesions noted Data : 04/15/22 10:15 04/15/22 10:15 A&P Assessment and plan (1) Left leg pain: Left lower extremity appears perfused, without any erythema, swelling, bruising or other obvious significant trauma. Discussed with him x-rays of left tib-fib and foot without fractures. Would follow-up with primary provider for reassessment. Otherwise continue Tylenol, Profen as needed, weightbearing as tolerated. We will sign off at this time, but feel free to contact in case of questions or changes in his condition. (2) Psychosis: (3) Schizophrenia: Attestations Medical Necessity Statement*: Continue assessment and management of psychosis, schizophrenia. Coding Level of Care Code Acute Accounts Payable Professional for [facility] Diagnoses Left leg pain M79.605 Psychosis F29 Schizophrenia F20.9
[2022-04-22] MEDS: OLANZapine 5 mg TABLET PO (20:40)
[2022-04-22] MEDS: OLANZapine 10 mg TABLET PO (20:40)
[2022-04-22 21:59] VITALS: BP 132/76; PULSE 76; RESP 17; TEMP 37; O2SAT 96
[2022-04-23 06:00] VITALS: BP 142/91; PULSE 71; RESP 16; TEMP 36.6; O2SAT 96
--- NOTE | 2022-04-23 10:23 | PC.NURSE ---
Behavioral Assessment Patient resting and appears and sounds very flat. Denies AH/VH and SI/HI. Patient very disorganized with his thoughts. Calm and cooperative.
--- NOTE | 2022-04-23 12:32 | W.PM.NPUPNS ---
Subjective NPU Subjective: Patient returns today reporting that he wants to leave and was unhappy about the discussion about continuing his stay. We discussed the fact that his level of disorganization made it difficult to consider discharging given the risks. We also discussed that due to the logistics we need to be filing the paperwork tomorrow. He had a disorganized rant about medications and got somewhat loud but was able to be redirected. Mental Status Exam MSE Comments: This is an overweight white man in hospital scrubs with adequate grooming and limited eye contact. At times turning completely away or significantly diverting his eyes. No abnormal movements except for mild psychomotor retardation. Cooperative with exam in mild to moderate distress. Speech was limited and decreased rate and decreased volume except when we discussed the hold. Mood described as Okay , affect is less odd. Thought process, more organized. Thought content: patient denies suicidal or homicidal ideation, no delusions reported but delusions noted, but denied auditory or visual hallucinations. Attention and concentration are mostly intact and memory appeared more reliable but none were formally tested. He is alert and oriented x3. Insight and judgment are impaired. Impulse control is impaired. Vitals/I&O/Wt Last Vital Signs Temp 97.8 F 04/23/22 06:00 Pulse 71 04/23/22 06:00 Resp 16 04/23/22 06:00 BP 142/91 04/23/22 06:00 Pulse Ox 96 04/23/22 06:00 O2 Del Method 04/23/22 06:00 Data NPU : 04/15/22 10:15 04/15/22 10:15 A&P Assessment and plan (1) Left leg pain: (2) Psychosis: (3) Schizophrenia: (4) Chronic schizophrenia: Plan This is a 41 year old white man with a history of trauma and genetic loading for mental health and addiction issues who present very disorganized reporting he had drank and it was recommended that he come to the hospital by someone. 1. Continue current medications. Started Zyprexa 10 mg p.o. nightly. Increased it to 15 mg with goal to transfer him over to Zyprexa Relprevv. 2. Encourage individual, group and milieu therapy 3. Continue q-15 minute check for safety 4. Recommend sober living treatment at the highest level of care to which the patient is willing to commit. 5. Patient on a 96-hour hold. Plan for filing 21-day-hold tomorrow. Involuntary Hold Information 96 Hour Hold: 96 Hour Involuntary Admission: No Attestations NPU Medical Necessity Statement*: Inpatient hospitalization is medically necessary and the clinically appropriate intervention at this time. We will monitor medications and make changes as indicated. Likely length of stay is 6-9 days. Coding Level of Care Code Acute Sales Marketing Manager for [facility] Diagnoses Left leg pain M79.605 Psychosis F29 Schizophrenia F20.9 Chronic schizophrenia F20.9
[2022-04-23 14:00] VITALS: BP 144/82; PULSE 94; RESP 18; TEMP 36.8; O2SAT 95
[2022-04-23] MEDS: OLANZapine 10 mg TABLET PO (20:41)
[2022-04-23] MEDS: OLANZapine 5 mg TABLET PO (20:41)
[2022-04-23 21:29] VITALS: BP 134/91; PULSE 105; RESP 16; TEMP 36.7; O2SAT 95
[2022-04-24 06:00] VITALS: BP 147/88; PULSE 77; RESP 16; TEMP 36.8; O2SAT 96
--- NOTE | 2022-04-24 12:58 | P.NPUPN_ITS ---
Subjective NPU Subjective: Patient presents today upset with this life underwriter about the 21-day hold being filed. He really had no answers for questions except demanding to know what was wrong with him. We discussed the concerns that were highlighted in the 21-day hold and he dismissed this life underwriter from the interview. Mental Status Exam MSE Comments: This is an overweight white man in hospital scrubs with adequate grooming and limited eye contact. No abnormal movements except for mild psychomotor retardation with some psychomotor agitation when pressed for answers.. Cooperative with exam in mild to moderate distress. Speech was limited and decreased rate and decreased volume except when we discussed the hold. Mood described not described, affect is odd. Thought process, more organized. Thought content: patient denies suicidal or homicidal ideation, no delusions reported but delusions noted, and did not necessarily appear to be attending to internal stimuli. Attention and concentration are mostly intact and memory appeared more reliable but none were formally tested. He is alert and oriented x3. Insight and judgment are impaired. Impulse control is impaired. Vitals/I&O/Wt Last Vital Signs Temp 98.1 F 04/23/22 21:29 Pulse 105 H 04/23/22 21:29 Resp 16 04/23/22 21:29 BP 134/91 04/23/22 21:29 Pulse Ox 95 04/23/22 21:29 O2 Del Method 04/23/22 21:29 Data NPU : 04/15/22 10:15 04/15/22 10:15 A&P Assessment and plan (1) Left leg pain: (2) Psychosis: (3) Schizophrenia: (4) Chronic schizophrenia: Plan This is a 41 year old white man with a history of trauma and genetic loading for mental health and addiction issues who present very disorganized reporting he had drank and it was recommended that he come to the hospital by someone. 1. Continue current medications. Started Zyprexa 10 mg p.o. nightly. I ncreased it to 15 mg with goal to transfer him over to Zyprexa Relprevv. 2. Encourage individual, group and milieu therapy 3. Continue q-15 minute check for safety 4. Recommend sober living treatment at the highest level of care to which the patient is willing to commit. 5. 21-day-hold paperwork filed this morning. Involuntary Hold Information 96 Hour Hold: 96 Hour Involuntary Admission: No Attestations NPU Medical Necessity Statement*: Inpatient hospitalization is medically necessary and the clinically appropriate intervention at this time. We will monitor medications and make changes as indicated. Likely length of stay is 6-9 days. Coding Level of Care Code Acute Wafer Fabrication Technician for [facility] Diagnoses Left leg pain M79.605 Psychosis F29 Schizophrenia F20.9 Chronic schizophrenia F20.9
[2022-04-24 14:00] VITALS: RESP 16
--- NOTE | 2022-04-24 16:31 | PC.NURSE ---
Pt refused to have vitals taken.
[2022-04-24] MEDS: OLANZapine 10 mg TABLET PO (20:46)
[2022-04-24] MEDS: OLANZapine 5 mg TABLET PO (20:46)
[2022-04-24 22:00] VITALS: BP 143/96; PULSE 94; RESP 18; O2SAT 96
[2022-04-25 06:00] VITALS: RESP 16
--- NOTE | 2022-04-25 10:31 | W.PM.NPUPNS ---
Subjective NPU Subjective: Patient presented today reporting that he is awaiting the hearing on Wednesday with thoughts that he might be able to leave earlier. We discussed him previously being on Seroquel and he was also confusing rant about whether he should add the Seroquel to the Zyprexa. Otherwise he continued to be distant from this advertising copy writer but less irritable about staying. Mental Status Exam MSE Comments: This is an overweight white man in hospital scrubs with adequate grooming and no eye contact. No abnormal movements except for mild psychomotor retardation with less psychomotor agitation. Cooperative with exam in mild distress. Speech was limited and decreased rate and decreased volume. Mood described as okay, affect is odd. Thought process, more organized. Thought content: patient denies suicidal or homicidal ideation, no delusions reported but delusions noted, and did not necessarily appear to be attending to internal stimuli. Attention and concentration are mostly intact and memory appeared more reliable but none were formally tested. He is alert and oriented x3. Insight and judgment are impaired. Impulse control is impaired. Vitals/I&O/Wt Last Vital Signs Temp 98.3 F 04/24/22 06:00 Pulse 94 04/24/22 22:00 Resp 18 04/24/22 22:00 BP 143/96 04/24/22 22:00 Pulse Ox 96 04/24/22 22:00 O2 Del Method 04/24/22 06:00 Data NPU : 04/15/22 10:15 04/15/22 10:15 A&P Assessment and plan (1) Left leg pain: (2) Psychosis: (3) Schizophrenia: (4) Chronic schizophrenia: Plan This is a 41 year old white man with a history of trauma and genetic loading for mental health and addiction issues who present very disorganized reporting he had drank and it was recommended that he come to the hospital by someone. 1. Continue current medications. Started Zyprexa 10 mg p.o. nightly. Increased it to 15 mg with goal to transfer him over to Zyprexa Relprevv. 2. Encourage individual, group and milieu therapy 3. Continue q-15 minute check for safety 4. Recommend sober living treatment at the highest level of care to which the patient is willing to commit. 5. 21-day-hold paperwork filed 04/24/2022. Involuntary Hold Information 96 Hour Hold: 96 Hour Involuntary Admission: No Attestations NPU Medical Necessity Statement*: Inpatient hospitalization is medically necessary and the clinically appropriate intervention at this time. We will monitor medications and make changes as indicated. Likely length of stay is 6-9 days. Coding Level of Care Code Acute Baker Apprentice for [facility] Diagnoses Left leg pain M79.605 Psychosis F29 Schizophrenia F20.9 Chronic schizophrenia F20.9
[2022-04-25 14:00] VITALS: BP 121/80; PULSE 83; RESP 20; TEMP 37.1; O2SAT 97
[2022-04-25 19:13] VITALS: BP 132/88; PULSE 101; RESP 16; TEMP 36.7; O2SAT 97
[2022-04-25] MEDS: OLANZapine 10 mg TABLET PO (19:58)
[2022-04-25] MEDS: OLANZapine 5 mg TABLET PO (19:58)
[2022-04-26 06:00] VITALS: BMI 34.0
--- NOTE | 2022-04-26 10:56 | PC.NURSE ---
UP AT [facility]ES STATION REQUESTING A [employer] BIBLE. PT ASKED THIS RN TO SET HIM UP AN EMAIL SO HE COULD GET A FREE GRACE BIBLE. NOTIFIED PT THAT STAFF CAN NOT MAKE EMAILS FOR PT. THIS RN DID FIND A NUMBER FOR PT TO CALL AT A [facility] TO REQUEST A GRACE BILBLE. PT WAS HAPPY ABOUT THAT. NEEDS MET.
--- NOTE | 2022-04-26 11:00 | PC.NURSE ---
PT IN ROOM. DENIES SI/HI, DOES ENDORSE AVH AT THIS TIME. PT STATES IF I LOOK OUT THE WINDOW I'LL SEE A SHEEP, THEN I WILL HEAR A SHEEP, SEE IT'S IN MY HEAD. THEN I HEAR YOUR VOICE THEN MAYBE THE JACKET SOMEONE GAVE ME HAD SHEEP HAIR ON IT AND I DON'T KNOW IF I HAVE TO GIVE IT BACK OR NOT UNTIL I HEAR THE SHEEP. PT CONTINUES TO RAMBLING AND HAVE A BLANK STARE. PT DECLINES MEDICATION FOR ANXIETY AND VOICES, PT STATES HALDOL AND ZYPREXA ACTUALLY STARTS THE VOICES THEN HE WILL SEE A SHEEP SO I BETTER NOT, I WILL WAIT FOR TONIGHT. NEEDS MET. PT WENT TO DAY ROOM AND CONTINUED TO READ THE [employer] BIBLE.
[2022-04-26] MEDS: nicotine 2 mg Gum BUCCAL ×2 (11:34→15:06)
[2022-04-26] MEDS: acetaminophen 325 mg Tablet 650 MG PO (11:35)
--- NOTE | 2022-04-26 13:56 | P.NPUPN_ITS ---
Subjective NPU Subjective: Patient presented today a little less irritable about the hearing tomorrow. He continues to bring up the possibility of combining Seroquel with his Zyprexa. He however was thinking about starting 900 mg and we discussed that we avoid starting medication like that. We discussed the possibility of starting a lesser dose and he reported he would think about it. We discussed the hearing process and the possibilities of what could happen. Mental Status Exam MSE Comments: This is an overweight white man in hospital scrubs with adequate grooming and limited eye contact. No abnormal movements except for mild psychomotor retardation. Cooperative with exam in mild distress. Speech was more spontaneous and decreased rate and more normal volume. Mood described as okay, affect is odd. Thought process, more organized. Thought content: patient denies suicidal or homicidal ideation, no delusions reported but delusions noted, and did not necessarily appear to be attending to internal stimuli. Attention and concentration are mostly intact and memory appeared more reliable but none were formally tested. He is alert and oriented x3. Insight and judgment are impaired. Impulse control is impaired. Vitals/I&O/Wt Last Vital Signs Temp 98.1 F 04/26/22 21:18 Pulse 62 04/26/22 21:18 Resp 18 04/26/22 21:18 BP 127/80 04/26/22 21:18 Pulse Ox 98 04/26/22 21:18 O2 Del Method 04/26/22 21:18 Weight last 48 hrs Weight 104.689 kg Data NPU : 04/15/22 10:15 04/15/22 10:15 A&P Assessment and plan (1) Left leg pain: (2) Psychosis: (3) Schizophrenia: (4) Chronic schizophrenia: Plan This is a 41 year old white man with a history of trauma and genetic loading for mental health and addiction issues who present very disorganized reporting he had drank and it was recommended that he come to the hospital by someone. 1. Continue current medications. Started Zyprexa 10 mg p.o. nightly. Increased it to 15 mg with goal to transfer him over to Zyprexa Relprevv. Consider augmentation with Seroquel as patient seems to believe that has been effective in the past. 2. Encourage individual, group and milieu therapy 3. Continue q-15 minute check for safety 4. Recommend sober living treatment at the highest level of care to which the patient is willing to commit. 5. 21-day-hold hearing tomorrow. Involuntary Hold Information 96 Hour Hold: 96 Hour Involuntary Admission: No Attestations NPU Medical Necessity Statement*: Inpatient hospitalization is medically necessary and the clinically appropriate intervention at this time. We will monitor medications and make changes as indicated. Likely length of stay is 6-9 days. Coding Level of Care Code Acute Zoology Technical Officer for [facility] Fwd Diagnoses Left leg pain M79.605 Psychosis F29 Schizophrenia F20.9 Chronic schizophrenia F20.9
[2022-04-26 14:00] VITALS: BP 148/91; PULSE 89; RESP 18; TEMP 36.4; O2SAT 95
--- NOTE | 2022-04-26 14:45 | PC.NURSE ---
PT CALLED THE [facility] IN [place] AND REQUESTED A BIBLE. 2 WOMEN BROUGHT THE BIBLE TO THE UNIT 2 HOURS LATER THAT HE HAD REQUESTED. THE MANDAEN BIBLE THAT WAS BROUGHT IN WAS CHECKED, AND DEEMED SAFE AND GIVEN TO THE PT REQUESTED. PT IS HAPPY AND NOW READING HIS BIBLE.
[2022-04-26] MEDS: OLANZapine 10 mg TABLET PO (19:44)
[2022-04-26] MEDS: OLANZapine 5 mg TABLET PO (19:44)
[2022-04-26] MEDS: trazodone 50 mg Tablet PO (19:45)
[2022-04-26 21:18] VITALS: BP 127/80; PULSE 62; RESP 18; TEMP 36.7; O2SAT 98
[2022-04-27 06:00] VITALS: BP 141/82; PULSE 71; RESP 18; TEMP 36.4; O2SAT 94
[2022-04-27 14:00] VITALS: BP 119/78; PULSE 81; RESP 17; TEMP 36.6; O2SAT 97
--- NOTE | 2022-04-27 14:33 | P.NPUPN_ITS ---
Subjective NPU Subjective: Patient presents today reporting that he is going to the hearing and wants to be discharged. He displayed 0 insight into his situation or what he would do upon discharge that would be safe and effective and keeping him on a hospital and taking care of his basic needs. He is somewhat more goal-directed in conversation but still very soft and confusing tangential soliloquies. Mental Status Exam MSE Comments: This is an overweight white man in hospital scrubs with adequate grooming and limited eye contact. No abnormal movements except for mild psychomotor retardation. Cooperative with exam in mild distress. Speech was more spontaneous and decreased rate and more normal volume. Mood described as okay, affect is odd. Thought process, more organized, but still disorganized. Thought content: patient denies suicidal or homicidal ideation, no delusions reported but delusions noted, and did not necessarily appear to be attending to internal stimuli. Attention and concentration are mostly intact and memory appeared more reliable but none were formally tested. He is alert and oriented x3. Insight and judgment are impaired. Impulse control is impaired. Vitals/I&O/Wt Last Vital Signs Temp 97.6 F 04/27/22 06:00 Pulse 71 04/27/22 06:00 Resp 18 04/27/22 06:00 BP 141/82 04/27/22 06:00 Pulse Ox 94 04/27/22 06:00 O2 Del Method 04/27/22 06:00 Weight last 48 hrs Weight 104.689 kg Data NPU : 04/15/22 10:15 04/15/22 10:15 A&P Assessment and plan (1) Left leg pain: (2) Psychosis: (3) Schizophrenia: (4) Chronic schizophrenia: Plan This is a 41 year old white man with a history of trauma and genetic loading for mental health and addiction issues who present very disorganized reporting he had drank and it was recommended that he come to the hospital by someone. 1. Continue current medications. Started Zyprexa 10 mg p.o. nightly. Increased it to 15 mg with goal to transfer him over to Zyprexa Relprevv. Start Seroquel 100 mg p.o. nightly as patient seems to believe that has been effective in the past. 2. Encourage individual, group and milieu therapy 3. Continue q-15 minute check for safety 4. Recommend sober living treatment at the highest level of care to which the patient is willing to commit. 5. 21-day-hold hearing today at 315. Involuntary Hold Information 96 Hour Hold: 96 Hour Involuntary Admission: No Attestations NPU Medical Necessity Statement*: Inpatient hospitalization is medically necessary and the clinically appropriate intervention at this time. We will monitor medications and make changes as indicated. Likely length of stay is 6-9 days. Coding Level of Care Code Acute Global Transportation Manager for [facility] Fwd Diagnoses Left leg pain M79.605 Psychosis F29 Schizophrenia F20.9 Chronic schizophrenia F20.9
[2022-04-27] MEDS: OLANZapine 10 mg TABLET PO (19:47)
[2022-04-27] MEDS: quetiapine 100 mg Tablet PO (19:48)
[2022-04-27] MEDS: OLANZapine 5 mg TABLET PO (19:48)
[2022-04-27] MEDS: nicotine 2 mg Gum BUCCAL (20:56)
[2022-04-27 22:00] VITALS: BP 136/86; PULSE 97; RESP 16; TEMP 36.9; O2SAT 94
[2022-04-28 06:00] VITALS: BP 114/77; PULSE 76; RESP 16; TEMP 36.6; O2SAT 96
[2022-04-28] MEDS: nicotine 2 mg Gum BUCCAL ×2 (11:47→13:50)
[2022-04-28 14:00] VITALS: BP 143/91; PULSE 87; RESP 20; TEMP 36.6; O2SAT 96
--- NOTE | 2022-04-28 16:50 | W.PM.NPUPNS ---
Subjective NPU Subjective: Patient presents today clearly irritable as he has been for the past few days. We discussed that this seemed to be the case that with his improvement he is able to track conversations and his concerns much better allowing him to express his frustration about not being able to leave. He continues to show limited insight into his level of impairment but he is much better able to express his grievance today. Mental Status Exam MSE Comments: This is an overweight white man in hospital scrubs with adequate grooming and limited eye contact. No abnormal movements except for mild psychomotor retardation. Cooperative with exam in mild to moderate distress. Speech was more spontaneous and more normal rate and volume. Mood described as okay, affect is odd and irritable. Thought process, more organized. Thought content: patient denies suicidal or homicidal ideation, no delusions reported but delusions noted, and did not necessarily appear to be attending to internal stimuli. Attention and concentration are mostly intact and memory appeared more reliable but none were formally tested. He is alert and oriented x3. Insight and judgment are impaired. Impulse control is impaired. Vitals/I&O/Wt Last Vital Signs Temp 98.6 F 04/28/22 22:00 Pulse 77 04/28/22 22:00 Resp 17 04/28/22 22:00 BP 133/80 04/28/22 22:00 Pulse Ox 98 04/28/22 22:00 O2 Del Method 04/28/22 22:00 Data NPU : 04/15/22 10:15 04/15/22 10:15 A&P Assessment and plan (1) Left leg pain: (2) Psychosis: (3) Schizophrenia: (4) Chronic schizophrenia: Plan This is a 41 year old white man with a history of trauma and genetic loading for mental health and addiction issues who present very disorganized reporting he had drank and it was recommended that he come to the hospital by someone. 1. Continue current medications. Started Zyprexa 10 mg p.o. nightly. Increased it to 15 mg with goal to transfer him over to Zyprexa Relprevv. Started Seroquel 100 mg p.o. nightly as patient seems to believe that has been effective in the past. 2. Encourage individual, group and milieu therapy 3. Continue q-15 minute check for safety 4. Recommend sober living treatment at the highest level of care to which the patient is willing to commit. 5. 21-day-hold granted. Involuntary Hold Information 96 Hour Hold: 96 Hour Involuntary Admission: No Attestations NPU Medical Necessity Statement*: Inpatient hospitalization is medically necessary and the clinically appropriate intervention at this time. We will monitor medications and make changes as indicated. Likely length of stay is 7-10 days. Coding Level of Care Code Acute Money Room Supervisor for [facility] Fwd Diagnoses Left leg pain M79.605 Psychosis F29 Schizophrenia F20.9 Chronic schizophrenia F20.9
[2022-04-28] MEDS: OLANZapine 5 mg TABLET PO (19:52)
[2022-04-28] MEDS: quetiapine 100 mg Tablet PO (19:53)
[2022-04-28] MEDS: OLANZapine 10 mg TABLET PO (19:53)
[2022-04-28 22:00] VITALS: BP 133/80; PULSE 77; RESP 17; TEMP 37; O2SAT 98
[2022-04-29 06:00] VITALS: BP 119/78; PULSE 77; RESP 16; TEMP 36.4; O2SAT 96
[2022-04-29] MEDS: nicotine 2 mg Gum BUCCAL ×2 (10:52→16:49)
[2022-04-29 14:00] VITALS: BP 149/96; PULSE 97; RESP 18; TEMP 36.6; O2SAT 96
--- NOTE | 2022-04-29 14:46 | P.NPUPN_ITS ---
Subjective NPU Subjective: Patient presents today continuing to have significant irritability about being here and starting to have less disorganization on the medication. Unfortunately he is now stating that he did not want to stay on the Zyprexa and he would like to only be on Seroquel. We had a long discussion about his improvement while taking Zyprexa, but he reports that he does not like the Zyprexa making him hungry. When discussing the fact that the switch to Seroquel might make him be here longer and our concern about adherence to the medication he got angry and ended the interview. Mental Status Exam MSE Comments: This is an overweight white man in hospital scrubs with adequate grooming and limited eye contact. No abnormal movements except for mild psychomotor retardation. Cooperative with exam in mild to moderate distress. Speech was more spontaneous and more normal rate and volume. Mood described as better, affect is odd and irritable. Thought process, more organized. Thought content: patient denies suicidal or homicidal ideation, no delusions reported but delusions noted, and did not necessarily appear to be attending to internal stimuli. Attention and concentration are mostly intact and memory appeared more reliable but none were formally tested. He is alert and oriented x3. Insight and judgment are impaired. Impulse control is impaired. Vitals/I&O/Wt Last Vital Signs Temp 97.8 F 04/29/22 14:00 Pulse 97 04/29/22 14:00 Resp 18 04/29/22 14:00 BP 149/96 04/29/22 14:00 Pulse Ox 96 04/29/22 14:00 O2 Del Method 04/29/22 06:00 Data NPU : 04/15/22 10:15 04/15/22 10:15 A&P Assessment and plan (1) Left leg pain: (2) Psychosis: (3) Schizophrenia: (4) Chronic schizophrenia: Plan This is a 41 year old white man with a history of trauma and genetic loading for mental health and addiction issues who present very disorganized reporting he had drank and it was recommended that he come to the hospital by someone. 1. Continue current medications. Started Zyprexa 10 mg p.o. nightly. Increased it to 15 mg with goal to transfer him over to Zyprexa Relprevv. Started Seroquel 100 mg p.o. nightly as patient seems to believe that has been effective in the past. We will try to convince him to stay on the Zyprexa but we may have to give him a long-acting injectable and just manage him being disagreeable. 2. Encourage individual, group and milieu therapy 3. Continue q-15 minute check for safety 4. Recommend sober living treatment at the highest level of care to which the patient is willing to commit. 5. 21-day-hold granted. Involuntary Hold Information 96 Hour Hold: 96 Hour Involuntary Admission: No Attestations NPU Medical Necessity Statement*: Inpatient hospitalization is medically necessary and the clinically appropriate intervention at this time. We will monitor medications and make changes as indicated. Likely length of stay is 7-10 days. Coding Level of Care Code Acute Dentist Attendant for [facility] Diagnoses Left leg pain M79.605 Psychosis F29 Schizophrenia F20.9 Chronic schizophrenia F20.9
[2022-04-29] MEDS: OLANZapine 10 mg TABLET PO (20:34)
[2022-04-29] MEDS: OLANZapine 5 mg TABLET PO (20:34)
[2022-04-29] MEDS: quetiapine 100 mg Tablet PO (20:34)
[2022-04-30] MEDS: acetaminophen 325 mg Tablet 650 MG PO ×2 (10:21→20:04)
[2022-04-30] MEDS: nicotine 2 mg Gum BUCCAL (10:21)
--- NOTE | 2022-04-30 13:10 | W.PM.NPUPNS ---
Subjective NPU Subjective: Patient presents today continuing to be isolative and distant from his story writer. He continues to be frustrated about being here and overly focused on who reportedly helped him in certain situations. One helpful nurse has ended her assignment and he is attributing a lot of the assistance he has received from the unit to her. Otherwise he denies any issues, continues to take his medication as prescribed but is unwilling to consider co-administration of higher doses of Seroquel. Mental Status Exam MSE Comments: This is an overweight white man in hospital scrubs with adequate grooming and limited eye contact. No abnormal movements except for mild psychomotor retardation. Cooperative with exam in mild to moderate distress. Speech was more spontaneous and more normal rate and volume. Mood described as better, affect is odd and irritable. Thought process, more organized. Thought content: patient denies suicidal or homicidal ideation, no delusions reported but delusions noted, and did not necessarily appear to be attending to internal stimuli. Attention and concentration are mostly intact and memory appeared more reliable but none were formally tested. He is alert and oriented x3. Insight and judgment are impaired. Impulse control is impaired. Vitals/I&O/Wt Last Vital Signs Temp 97.8 F 04/29/22 14:00 Pulse 97 04/29/22 14:00 Resp 18 04/29/22 14:00 BP 149/96 04/29/22 14:00 Pulse Ox 96 04/29/22 14:00 O2 Del Method 04/29/22 06:00 Data NPU : 04/15/22 10:15 04/15/22 10:15 A&P Assessment and plan (1) Left leg pain: (2) Psychosis: (3) Schizophrenia: (4) Chronic schizophrenia: Plan This is a 41 year old white man with a history of trauma and genetic loading for mental health and addiction issues who present very disorganized reporting he had drank and it was recommended that he come to the hospital by someone. 1. Continue current medications. Started Zyprexa 10 mg p.o. nightly. Increased it to 15 mg with goal to transfer him over to Zyprexa Relprevv. Started Seroquel 100 mg p.o. nightly as patient seems to believe that has been effective in the past. We will try to convince him to stay on the Zyprexa but we may have to give him a long-acting injectable and just manage him being disagreeable. 2. Encourage individual, group and milieu therapy 3. Continue q-15 minute check for safety 4. Recommend sober living treatment at the highest level of care to which the patient is willing to commit. 5. 21-day-hold granted. Involuntary Hold Information 96 Hour Hold: 96 Hour Involuntary Admission: No Attestations NPU Medical Necessity Statement*: Inpatient hospitalization is medically necessary and the clinically appropriate intervention at this time. We will monitor medications and make changes as indicated. Likely length of stay is 7-10 days. Coding Level of Care Code Acute Simulation Developer for [facility] Fwd Diagnoses Left leg pain M79.605 Psychosis F29 Schizophrenia F20.9 Chronic schizophrenia F20.9
--- NOTE | 2022-04-30 13:11 | PC.NURSE ---
PATIENT DENIES AH/VH AND SI/HI. PATIENT IS VERY BLAND WHEN TALKING AND SEEMS TO BE IRRITATED THAT HIS BANK CARD ISN'T BEING SENT SINCE HE FOUND OUT HIS ACCOUNT IS BLOCKED. PATIENT CALM AND COOPERATIVE.
[2022-04-30 14:00] VITALS: BP 115/77; PULSE 108; RESP 20; TEMP 37.4; O2SAT 94
[2022-04-30 20:02] VITALS: BP 94/45; PULSE 118; RESP 16; TEMP 38.9; O2SAT 95
[2022-04-30] MEDS: OLANZapine 5 mg TABLET PO (20:04)
[2022-04-30] MEDS: OLANZapine 10 mg TABLET PO (20:04)
[2022-04-30] MEDS: quetiapine 100 mg Tablet PO (20:05)
[2022-04-30] MEDS: ibuprofen 600 mg Tablet PO (21:58)
[2022-04-30 23:00] VITALS: TEMP 37.3
--- NOTE | 2022-04-30 23:01 | PC.NURSE ---
Patient Refused ordered Blood draw (Blood culture, CBC, BMP) ordered by consulting Hospitalist DR. Cunningham. Ordered UA, Covid Swab obtained. Chest X-Ray ordered for in the morning. DR. Cunningham notified by telephone call at about 23:05.
[2022-04-30 23:05] LABS: Add Urine Microscopic? NO; Charge for UA Resulting for Rev
[2022-04-30 23:14] LABS: Urine Appearance Clear (CLEAR); Urine Color Yellow (Yellow)
[2022-04-30 23:15] LABS: Bilirubin Urine Neg (Negative); Blood Urine Neg (Negative); Glucose Urine UA Norm (Normal); Ketones Urine 1+ (Negative); Leukocyte Esterase Urine Negative (Negative); Nitrate Urine Negative (Negative); Protein Urine Neg (Negative); Specific Gravity, Urine 1.015 (1.005-1.030); Urobilinogen Urine Norm (Negative); pH Urine 5 (5-7)
[2022-05-01 00:48] LABS: Adenovirus Not Detected (NOT DETECT); Chlamydia Pneumoniae Not Detected (NOT DETECT); Coronavirus 229E,HKU1,NL63,OC4 Not Detected (NOT DETECT); Human Metapneumovirus Not Detected (NOT DETECT); Human Rhinovirus/Enterovirus Not Detected (NOT DETECT); Influenza A Not Detected (NOT DETECT); Influenza A H1 Not Detected (NOT DETECT); Influenza A H1-2009 Not Detected (NOT DETECT); Influenza A H3 Not Detected (NOT DETECT); Influenza B Not Detected (NOT DETECT); Mycoplasma Pneumoniae Not Detected (NOT DETECT); Parainfluenza Virus Type 1 Not Detected (NOT DETECT); Parainfluenza Virus Type 2 Not Detected (NOT DETECT); Parainfluenza Virus Type 3 Not Detected (NOT DETECT); Parainfluenza Virus Type 4 Not Detected (NOT DETECT); Respiratory Syncytial Virus A Not Detected (NOT DETECT); Respiratory Syncytial Virus B Not Detected (NOT DETECT); SARS-COV-2 Not Detected (NOT DETECT)
[2022-05-01 06:00] VITALS: BP 122/73; PULSE 90; RESP 18; TEMP 36.7; O2SAT 93
--- NOTE | 2022-05-01 06:00 | XR_ITS ---
WS: [id number] Portable AP upright chest, 05/01/2022 Clinical Data: fever, assess for pneumonia Comparison: None. Findings: There are are minimal patchy bilateral lower lobe opacities. No nodules, masses or effusion s are seen. The heart is normal. The pulmonary vascularity is not remarkable. No pneumothorax is seen . XR/XR chest 1V portable [id number] Impression: Bilateral patchy lower lobe opacities which could represent pneumonia and recom mend repeat chest x-ray in 2-3 days.
--- NOTE | 2022-05-01 11:12 | P.CONIM_ITS ---
Providers/Reason For Consult Consulting Physician/Specialty*: Internal medicine Reason for Consult*: Fever Requesting Physician: Dr. Dang Attending Physician: Brayan Dang MD History of Present Illness History of Present Illness Manjinder Emmanuel is a 41 year old male who is on 21-day hold for acute psychosis with disorganized thinking at [facility]. Medicine was initially consulted on 04/21 for left leg pain at which time fracture or vascular injury was ruled out. Medicine was reconsulted on 04/30 night as patient developed a fever of 1 time going up to 102 Fahrenheit. At that time patient refused to meet with the physician on undergoing investigation hence patient is seen on 05/01. Today patient is agreeable to be seen, participated in interview. Patient denies any further pain in his leg. Denies any nausea, vomiting, headache, dizziness, runny nose, abdominal pain, dysuria, pain while defecating, diarrhea, hematuria, cough but complains of pain in his retrosternal area on taking a deep inspiration which has been going on for last 1 or 2 days. Patient continues to decline any further investigation including blood work. States he is not interested in getting any blood work. We discussed given high fever it is important to make sure he does not have any bacteremia. Patient still does not want to go ahead with any investigations for now please okay on taking antibiotic antibiotics for few days. Review of Systems General: Reports: 10 or more systems reviewed and unremarkable except in HPI and below Const: Denies: fever(s), chills, body aches, change in appetite, change in weight, malaise, night sweats, diaphoresis, change in sleep pattern, daytime sleepiness or snoring Eyes: Denies: change in vision, blurry vision, photophobia, eye discomfort or eye discharge ENMT: Denies: throat pain, enlarged tonsils, hoarseness, mouth pain, oral sores, dry mouth, tinnitus, nasal congestion or post nasal drip Card: Denies: chest pain, palpitations, irregular heart rhythm, edema, swelling of feet/ankles, lightheadedness, syncope, pre-syncope, dyspnea on exertion, orthopnea, leg pain with exertion or acrocyanosis Resp: Denies: dyspnea, productive cough, non-productive cough, wheezing, stridor, pain on inspiration, change in phlegm color, hemoptysis or chest congestion GI: Denies: abdominal pain, nausea, vomiting, hematemesis, coffee ground emesis, dysphagia, heartburn, diarrhea, constipation, bloating, GI cramping, change in bowel habits, pain on defecation, hematochezia or melena : Denies: flank pain, difficulty urinating, dysuria, urinary frequency, urinary urgency, urinary hesitancy, urinary dribbling, difficulty starting urination, change in urine stream, nocturia or hematuria Musc: Denies: neck pain, back pain, extremity pain, joint pain, joint swelling, joint redness, joint stiffness or limited range of motion Neuro: Denies: headache(s), numbness in extremities, weakness in extremities, sensory changes, lack of coordination, difficulty walking, frequent falls, dizziness, vertigo, confusion, Slurred speech present, difficulty communicating thoughts or seizure-like activity Psych: Denies: anxiety, depression, mood swings, panic attacks, hopelessness or irritability Endo: Denies: polyuria, polydipsia, tired all the time, cold intolerance, excessive sweating, flushing or heat intolerance Oli/Lymph: Denies: easy bruising or easy bleeding All/Imm: Denies: tongue swelling, facial swelling or acute wheezing Medications/Allergies Home Medications Medication Instructions Recorded Confirmed Last Taken Type No Known Home Medications 04/15/22 04/15/22 Unknown History Allergies Allergy/AdvReac Type Severity Reaction Status Date / Time No Known Allergies Allergy Verified 04/15/22 14:40 Current Medications Generic Name Dose Route Start Last Admin Trade Name Freq PRN Reason Stop Dose Admin Acetaminophen 650 mg 04/15/22 17:49 04/30/22 20:04 Acetaminophen 325 Mg Tablet PO 650 mg Q4H PRN Administration MILD PAIN Ibuprofen 600 mg 04/20/22 13:09 04/30/22 21:58 Ibuprofen 600 Mg Tablet PO 600 mg Q6H PRN Administration MODERATE PAIN Nicotine 1 patch 04/15/22 17:49 04/20/22 09:24 Nicotine 21 Mg Patch TRANSDERMA 1 patch DAILY PRN Administration NICOTINE WITHDRAWAL Nicotine Polacrilex 2 mg 04/15/22 17:49 04/30/22 10:21 Nicotine 2 Mg Gum BUCCAL 2 mg Q2H PRN Administration NICOTINE WITHDRAWAL Olanzapine 5 mg 04/15/22 17:49 04/16/22 20:19 Olanzapine 5 Mg Odt PO 5 mg Q4H PRN Administration Agitation/Psychosis Olanzapine 10 mg 04/22/22 21:00 04/30/22 20:04 Olanzapine 10 Mg Tablet PO 10 mg BEDTIME JLUIS Administration Olanzapine 5 mg 04/22/22 21:00 04/30/22 20:04 Olanzapine 5 Mg Tablet PO 5 mg BEDTIME JLUIS Administration Quetiapine Fumarate 100 mg 04/27/22 21:00 04/30/22 20:05 Quetiapine 100 Mg Tablet PO 100 mg BEDTIME JLUIS Administration Trazodone HCl 50 mg 04/15/22 17:49 04/26/22 19:45 Trazodone 50 Mg Tablet PO 50 mg BEDTIME PRN Administration SLEEP PFSH Acute PFSH: Medical History (Updated 05/01/22 @ 15:18 by Sebastian Rojas MD) HTN (hypertension) Schizophrenia Family History Father Cancer Social History Smoking and tobacco status: current every day smoker Alcohol intake: former Substance/Drug Use: never Vitals/I&O/Wt Last Vital Signs Temp 98.0 F 05/01/22 06:00 Pulse 90 05/01/22 06:00 Resp 18 05/01/22 06:00 BP 122/73 05/01/22 06:00 Pulse Ox 93 05/01/22 06:00 O2 Del Method 04/30/22 14:00 Physical Exam Narrative: General: No acute distress, AO x3 HEENT: PERRLA, pupils bilaterally equal and reactive Chest: Normal vesicular breath sounds, no added sounds, equal good air entry bilaterally CVS: S1-S2 regular, no murmurs, no tachycardia, no gallops, no rubs Abdomen: Soft, nontender, no organomegaly, bowel sounds present Neuro: No focal deficits, no facial deformity, AO x3, power 5/5 in all limbs Extremities bilateral lower limb well perfused, no edema Data : 04/15/22 10:15 04/15/22 10:15 Other Labs: Radiology Impressions Head CT 04/15/22 14:10 IMPRESSION: No acute intracranial findings. Foot X-Ray 04/21/22 17:25 IMPRESSION: No acute findings. Tibia/Fibula X-Ray 04/21/22 17:25 IMPRESSION: No acute findings. Chest X-Ray 05/01/22 06:00 Impression: Bilateral patchy lower lobe opacities which could represent pneumonia and recommend repeat chest x-ray in 2-3 days. A&P Assessment and plan (1) Fever: 1 time going up to 102.3 Fahrenheit. Assess for now. Patient does have mild tachycardia but has remained hemodynamically stable and saturating well on room air. Colon etiology. COVID-19 PCR negative. Chest x-ray done earlier today morning concerning for bilateral patchy opacities. Patient saturating well on room air. Complaining of mild retrosternal pain on taking deep inspiration. Denies any cough. Declining any further blood work. For now empirically start on Augmentin and Levaquin for 5 days. If agreeable can do CBC, CMP, blood culture. Given history of left leg pain will do lower limb Dopplers to rule out DVT. (2) Psychosis: (3) Schizophrenia: Plan Tylenol for fever. Thank you for involving us in care of Mr. Emmanuel. We will continue to follow. Consult Attestations Medical Necessity Statement: As per primary team. Time Spent in Patient Care: Greater than 35 minutes Coding Level of Care Code Acute Field Secretary for [facility] Diagnoses Fever R50.9 Psychosis F29 Schizophrenia F20.9
[2022-05-01] MEDS: levoFLOXacin 500 mg Tablet PO (11:24)
--- NOTE | 2022-05-01 11:34 | PC.NURSE ---
PATIENT STILL REFUSING TO HAVE HIS BLOOD DRAWN AFTER THIS RN EXPLAINED THE BENEFITS AND THE REASONING BEHIND THE BLOOD DRAW. WHILE PATIENT STATED HE UNDERSTOOD THE REASONING, HE STATED HE WAS NOT GOING TO ALLOW HIS BLOOD TO BE DRAWN. HOWEVER, THE PATIENT WAS COMPLIANT IN TAKING THE LEVOFLOXACIN.
[2022-05-01 14:00] VITALS: BP 133/94; PULSE 112; RESP 20; TEMP 36.8; O2SAT 94
[2022-05-01] MEDS: amoxicillin-clav 500-125 mg Tablet 1 TAB PO ×2 (14:38→21:19)
--- NOTE | 2022-05-01 15:22 | USCV_ITS ---
Manjinder Emmanuel Age: 41 Gender: M : 1980 Exam Date: 05/01/2022 15:55 Ordering Phys: Sebastian Rojas MD Technologist: CYNTHIA Exam Location: [facility] – [place] Indication: LLE PAIN HISTORY: Lower extremity pain. PROCEDURES: Venous duplex imaging was performed in bilateral lower extremities. The following venous structures were evaluated: common femoral vein, profunda vein, proximal portion of the greater saphenous vein, superficial femoral vein, and the popliteal vein. In addition, the posterior tibial and peroneal trunk were evaluated. Serial compression, augmentation maneuvers, and spectral Doppler flow evaluation were performed. FINDINGS: Normal 2-D Doppler and augmentation and compressibility throughout the lower extremity venous structures. Additional imaging through the proximal calf veins also reveals no thrombus. Limited evaluation of the greater saphenous vein is patent with no thrombus. CONCLUSIONS No DVT bilateral lower extremities. Dr. Merlene Ordonez DO (Electronically Signed) Final Date: 01 May 2022 16:11 S
--- NOTE | 2022-05-01 17:08 | P.NPUPN_ITS ---
Subjective NPU Subjective: Patient presents today continuing to be short with this curriculum writer and clearly angry about being here. He continues to often conduct the entire interview with his back to this curriculum writer. Otherwise he denies willingness to make any medication changes except if we were to put him on Seroquel only. He denies any new issues. Mental Status Exam MSE Comments: This is an overweight white man in hospital scrubs with adequate grooming and limited eye contact. No abnormal movements except for mild psychomotor retardation. Cooperative with exam in mild distress. Speech was limited but more normal rate and volume. Mood described as fine, affect is odd and irritable. Thought process, more organized. Thought content: patient denies suicidal or homicidal ideation, no delusions reported but delusions noted, and did not necessarily appear to be attending to internal stimuli. Attention and concentration are mostly intact and memory appeared more reliable but none were formally tested. He is alert and oriented x3. Insight and judgment are impaired. Impulse control is impaired. Vitals/I&O/Wt Last Vital Signs Temp 98.3 F 05/01/22 14:00 Pulse 112 H 05/01/22 14:00 Resp 20 H 05/01/22 14:00 BP 133/94 05/01/22 14:00 Pulse Ox 94 05/01/22 14:00 O2 Del Method 05/01/22 14:00 Data NPU : 04/15/22 10:15 04/15/22 10:15 A&P Assessment and plan (1) Left leg pain: (2) Psychosis: (3) Schizophrenia: (4) Chronic schizophrenia: Plan This is a 41 year old white man with a history of trauma and genetic loading for mental health and addiction issues who present very disorganized reporting he had drank and it was recommended that he come to the hospital by someone. 1. Continue current medications. Started Zyprexa 10 mg p.o. nightly. Increased it to 15 mg with goal to transfer him over to Zyprexa Relprevv. Started Seroquel 100 mg p.o. nightly as patient seems to believe that has been effective in the past. We will try to convince him to stay on the Zyprexa but we may have to give him a long-acting injectable and just manage him being disagreeable. 2. Encourage individual, group and milieu therapy 3. Continue q-15 minute check for safety 4. Recommend sober living treatment at the highest level of care to which the patient is willing to commit. 5. 21-day-hold granted. 6. Appreciate hospitalist consult for fever without clear etiology. We will follow and implement recommendations as indicated. Involuntary Hold Information 96 Hour Hold: 96 Hour Involuntary Admission: No Attestations NPU Medical Necessity Statement*: Inpatient hospitalization is medically necessary and the clinically appropriate intervention at this time. We will monitor medications and make changes as indicated. Likely length of stay is 7-10 days. Coding Level of Care Code Acute Security Police for Chg Fwd Diagnoses Left leg pain M79.605 Psychosis F29 Schizophrenia F20.9 Chronic schizophrenia F20.9
[2022-05-01] MEDS: nicotine 2 mg Gum BUCCAL ×2 (19:00→21:14)
[2022-05-01 19:52] VITALS: BP 119/78; PULSE 119; RESP 16; TEMP 36.9; O2SAT 95
[2022-05-01] MEDS: OLANZapine 5 mg TABLET PO (21:14)
[2022-05-01] MEDS: OLANZapine 10 mg TABLET PO (21:15)
[2022-05-01] MEDS: quetiapine 100 mg Tablet PO (21:15)
[2022-05-02 06:00] VITALS: BP 112/73; PULSE 100; RESP 16; TEMP 36.9; O2SAT 95
--- NOTE | 2022-05-02 08:31 | P.NPUPN_ITS ---
Subjective NPU Subjective: Patient presents today reporting he is feeling better. He appears less isolative spending less time in his room today. He discussed the likelihood or at least he is questioning whether or not he would be here for the full 21 days. We discussed the things that may contribute to that time being less. We also discussed that there would be a new doctor on Wednesday, Dr. Poon and that he would be able to speak to him freely as we making independent decisions based on his fresh assessment of the cases. Mental Status Exam MSE Comments: This is an overweight white man in hospital scrubs with adequate grooming and limited eye contact. No abnormal movements except for mild psychomotor retardation. Cooperative with exam in mild distress. Speech was limited but more normal rate and volume. Mood described as fine, affect is odd and less irritable. Thought process, more organized. Thought content: patient denies suicidal or homicidal ideation, no delusions reported but delusions noted, and did not appear to be attending to internal stimuli. Attention and concentration are mostly intact and memory appeared more reliable but none were formally tested. He is alert and oriented x3. Insight and judgment are impaired. Impulse control is impaired, but improving. Vitals/I&O/Wt Last Vital Signs Temp 98.4 F 05/02/22 06:00 Pulse 100 05/02/22 06:00 Resp 16 05/02/22 06:00 BP 112/73 05/02/22 06:00 Pulse Ox 95 05/02/22 06:00 O2 Del Method 05/01/22 14:00 Data NPU : 04/15/22 10:15 04/15/22 10:15 A&P Assessment and plan (1) Left leg pain: (2) Psychosis: (3) Schizophrenia: (4) Chronic schizophrenia: Plan This is a 41 year old white man with a history of trauma and genetic loading for mental health and addiction issues who present very disorganized reporting he had drank and it was recommended that he come to the hospital by someone. 1. Continue current medications. Started Zyprexa 10 mg p.o. nightly. Increased it to 15 mg with goal to transfer him over to Zyprexa Relprevv. Started Seroquel 100 mg p.o. nightly as patient seems to believe that has been effective in the past. We will try to convince him to stay on the Zyprexa but we may have to give him a long-acting injectable and just manage him being disagreeable. 2. Encourage individual, group and milieu therapy 3. Continue q-15 minute check for safety 4. Recommend sober living treatment at the highest level of care to which the patient is willing to commit. 5. 21-day-hold granted 04/27/2022. 6. Appreciate hospitalist consult for fever without clear etiology. We will follow and implement recommendations as indicated. Involuntary Hold Information 96 Hour Hold: 96 Hour Involuntary Admission: No Attestations NPU Medical Necessity Statement*: Inpatient hospitalization is medically necessary and the clinically appropriate intervention at this time. We will monitor medications and make changes as indicated. Likely length of stay is 7-10 days. Coding Level of Care Code Acute Environmental Services Supervisor for Josee Aponte Diagnoses Left leg pain M79.605 Psychosis F29 Schizophrenia F20.9 Chronic schizophrenia F20.9
--- NOTE | 2022-05-02 09:22 | PC.NURSE ---
Patient lying in bed. Patient had trouble staying awake during assessment. He denies AH/VH and SI/HI. No abnormal statements this morning. Patient is also refusing blood draw again today.
[2022-05-02] MEDS: amoxicillin-clav 500-125 mg Tablet 1 TAB PO ×3 (10:12→20:03)
[2022-05-02] MEDS: levoFLOXacin 500 mg Tablet PO (10:13)
[2022-05-02 14:00] VITALS: BP 113/70; PULSE 90; RESP 19; TEMP 36.7; O2SAT 97
[2022-05-02] MEDS: nicotine 2 mg Gum BUCCAL ×3 (15:01→20:12)
[2022-05-02] MEDS: OLANZapine 5 mg TABLET PO (20:03)
[2022-05-02] MEDS: quetiapine 100 mg Tablet PO (20:03)
[2022-05-02] MEDS: OLANZapine 10 mg TABLET PO (20:03)
[2022-05-02 20:26] VITALS: BP 126/89; PULSE 98; RESP 16; TEMP 36.8; O2SAT 96
[2022-05-02] MEDS: nicotine 4 mg lozenge MUCOUS MEM (23:08)
[2022-05-03] MEDS: cetylpyridinium Lozenge 1 EACH MUCOUS MEM ×3 (02:38→20:01)
[2022-05-03 06:00] VITALS: BP 102/78; PULSE 79; RESP 18; TEMP 36.3; O2SAT 93
[2022-05-03] MEDS: levoFLOXacin 500 mg Tablet PO (06:51)
--- NOTE | 2022-05-03 08:12 | W.PM.NPUPNS ---
Subjective NPU Subjective: Patient was in today reporting that he is doing okay. He is now focused on the financial situation which still is somewhat confusing about what happened with this card that he had not obtained. He was under the impression that the card was sent with money on it but we were advised that recent conversations led to reports that the card had been blocked and no money was being put on it and that he had to do some things to get restarted. We discussed in working with the treatment team and Dr. Poon on that tomorrow. Mental Status Exam MSE Comments: This is an overweight white man in hospital scrubs with adequate grooming and limited eye contact. No abnormal movements except for mild psychomotor retardation. Cooperative with exam in mild distress. Speech was limited but more normal rate and volume. Mood described as fine, affect is odd and less irritable. Thought process, more organized. Thought content: patient denies suicidal or homicidal ideation, no delusions reported but delusions noted, and did not appear to be attending to internal stimuli. Attention and concentration are mostly intact and memory appeared more reliable but none were formally tested. He is alert and oriented x3. Insight and judgment are impaired. Impulse control is impaired, but improving. Vitals/I&O/Wt Last Vital Signs Temp 98.3 F 05/02/22 20:26 Pulse 98 05/02/22 20:26 Resp 16 05/02/22 20:26 BP 126/89 05/02/22 20:26 Pulse Ox 96 05/02/22 20:26 O2 Del Method 05/01/22 14:00 Weight last 48 hrs Weight 111.493 kg Data NPU : 05/03/22 19:05 05/03/22 19:05 A&P Assessment and plan (1) Left leg pain: (2) Psychosis: (3) Schizophrenia: (4) Chronic schizophrenia: Plan This is a 41 year old white man with a history of trauma and genetic loading for mental health and addiction issues who present very disorganized reporting he had drank and it was recommended that he come to the hospital by someone. 1. Continue current medications. Started Zyprexa 10 mg p.o. nightly. Increased it to 15 mg with goal to transfer him over to Zyprexa Relprevv. Started Seroquel 100 mg p.o. nightly as patient seems to believe that has been effective in the past. We will try to convince him to stay on the Zyprexa but we may have to give him a long-acting injectable and just manage him being disagreeable. 2. Encourage individual, group and milieu therapy 3. Continue q-15 minute check for safety 4. Recommend sober living treatment at the highest level of care to which the patient is willing to commit. 5. 21-day-hold granted 04/27/2022. 6. Appreciate hospitalist consult for fever without clear etiology. We will follow and implement recommendations as indicated. Involuntary Hold Information 96 Hour Hold: 96 Hour Involuntary Admission: No Attestations NPU Medical Necessity Statement*: Inpatient hospitalization is medically necessary and the clinically appropriate intervention at this time. We will monitor medications and make changes as indicated. Likely length of stay is 7-10 days. Coding Level of Care Code Acute Economic Analysis Director for Josee Mesad Diagnoses Left leg pain M79.605 Psychosis F29 Schizophrenia F20.9 Chronic schizophrenia F20.9
[2022-05-03] MEDS: amoxicillin-clav 500-125 mg Tablet 1 TAB PO ×3 (08:49→20:02)
[2022-05-03] MEDS: nicotine 4 mg lozenge MUCOUS MEM ×5 (08:50→20:01)
[2022-05-03 13:36] VITALS: BP 148/88; PULSE 99; RESP 19; TEMP 36.6; O2SAT 97
[2022-05-03] MEDS: quetiapine 100 mg Tablet PO (20:01)
[2022-05-03] MEDS: OLANZapine 10 mg TABLET PO (20:01)
[2022-05-03] MEDS: OLANZapine 5 mg TABLET PO (20:01)
[2022-05-03 20:26] LABS: Basophils % 0.4 %; Eosinophils # 0.2 10^3/uL (0.0-0.8); Eosinophils % 2.5 %; Hematocrit 42.4 % (42.0-52.0); Hemoglobin 14.6 g/dL (11.7-16.6); Lymphocytes % 29.8 %; Mean Corpuscular HGB Conc 34.4 g/dL (30.0-36.0); Mean Corpuscular Hemoglobin 31.7 pg (28.0-34.0); Mean Corpuscular Volume 92.2 fl (80-94); Mean Platelet Volume 10.6 fL (7.4-10.4); Monocytes # 0.6 10^3/uL (0.2-0.9); Monocytes % 9.1 %; Neutrophils # 3.92 10^3/uL (1.8-7.7); Neutrophils % 57.5 %; Nucleated Red Blood Cells % 0 %; Platelet Count 266 10^3/cmm (130-400); Red Cell Distribution Width 12.1 % (12.1-15.1); White Blood Count 6.8 10^3/uL (4.0-10.0)
[2022-05-03 20:48] LABS: Alanine Aminotransferase 26 U/L (0-41); Albumin Level 4.1 g/dL (3.5-5.2); Alkaline Phosphatase 107 U/L (40-130); Aspartate Amino Transferase 19 U/L (0-40); Blood Urea Nitrogen 10 mg/dL (6-20); Calcium 9.9 mg/dL (8.5-10.5); Carbon Dioxide 27 mmol/L (22-29); Chloride 100 mmol/L (98-107); Globulin 3.1 g/dL (1.3-4.6); Glomerular Filtration Rate 148.5 mL/min (90-130); Glucose 112 mg/dL (65-115); Osmolality Calculated 292 mOsm/kg (285-295); Sodium 141 mmol/L (136-145); Total Bilirubin 0.2 mg/dL (0.15-1.2); Total Protein 7.2 g/dL (6.6-8.7)
[2022-05-03 21:05] VITALS: BP 181/104; PULSE 77; RESP 14; TEMP 36.8; O2SAT 97
[2022-05-03 22:00] VITALS: BP 181/104; PULSE 77; RESP 14; TEMP 36.8; O2SAT 97
[2022-05-03] MEDS: ibuprofen 600 mg Tablet PO (23:48)
[2022-05-04] MEDS: levoFLOXacin 500 mg Tablet PO (05:31)
[2022-05-04] MEDS: amoxicillin-clav 500-125 mg Tablet 1 TAB PO ×3 (09:06→19:55)
[2022-05-04] MEDS: nicotine 4 mg lozenge MUCOUS MEM ×4 (09:58→22:38)
--- NOTE | 2022-05-04 10:21 | PC.NURSE ---
Patient lying on his matress that he put in the floor. He denies SI/HI and VH/AH. Denies hallucinations, but patient is taking a very long time to respond to questions and is staring off into the distance. When he does reply it is clear and appropriate. Patient was roused for breakfast multiple times without success by the CNAs. Upon me entering the room he thought he had missed breakfast and was confused.
[2022-05-04 14:00] VITALS: BP 162/104; PULSE 115; RESP 16; TEMP 36.6; O2SAT 96
--- NOTE | 2022-05-04 18:02 | W.PM.NPUPNS ---
Subjective NPU Subjective: Patient is a 41-year-old white male with schizophrenia admitted with disorganized behavior and active paranoia and delusions. Patient had reported that he felt better on Zyprexa. He continued to isolate himself on the milieu. He continued to show evidence of disorganized thinking at times. He has been engaging in his self-care with some prompting on the milieu. He had spent his time today discussing with me the importance of having his children being safe from some unspecified people that may somehow find out who he is and harm them. He had reported considerable financial to stressors. He reports that he had been hospitalized in 50 different places over the course of his illness in the past 20 to 30 years. Mental Status Exam MSE Comments: This is an overweight white man in hospital scrubs with adequate grooming and limited eye contact. No abnormal movements except for mild psychomotor retardation. Cooperative with exam in mild distress. Speech was limited but more normal rate and volume. Mood described as good , affect is odd. Thought process : showed evidence of nonsequiters, illogical, Thought content: , active paranoia, patient denies suicidal or homicidal ideation, Attention and concentration are mostly intact and memory appeared more reliable but none were formally tested. He is alert and oriented x3. Insight and judgment are impaired. Impulse control remains impaired. Vitals/I&O/Wt Last Vital Signs Temp 98 F 05/04/22 14:00 Pulse 115 H 05/04/22 14:00 Resp 16 05/04/22 14:00 BP 162/104 05/04/22 14:00 Pulse Ox 96 05/04/22 14:00 O2 Del Method 05/03/22 22:00 Weight last 48 hrs Weight 111.493 kg Data NPU : 05/03/22 19:05 05/03/22 19:05 Micro: Microbiology 05/03/22 19:09 Blood Culture - Preliminary Blood SPECIMEN COLLECTED 05/03/22 19:05 Blood Culture - Preliminary Blood SPECIMEN COLLECTED Microbiology 05/03/22 19:09 Blood Blood Culture - Preliminary SPECIMEN COLLECTED 05/03/22 19:05 Blood Blood Culture - Preliminary SPECIMEN COLLECTED A&P Assessment and plan (1) Left leg pain: (2) Psychosis: (3) Schizophrenia: (4) Chronic schizophrenia: Plan This is a 41 year old white man with a history of trauma and genetic loading for mental health and addiction issues who present very disorganized reporting he had drank and it was recommended that he come to the hospital by someone. 1. Continue current medications. Continue Zyprexa 15mg at night. Started Seroquel 100 mg p.o. nightly as patient seems to believe that has been effective in the past. 2. Encourage individual, group and milieu therapy 3. Continue q-15 minute check for safety 4. Recommend sober living treatment at the highest level of care to which the patient is willing to commit. 5. 21-day-hold granted 04/27/2022. 6. Appreciate hospitalist consult for fever without clear etiology. We will follow and implement recommendations as indicated. 7. Recommend Zyprexa Relprev. Involuntary Hold Information 96 Hour Hold: 96 Hour Involuntary Admission: No Attestations NPU Medical Necessity Statement*: Inpatient hospitalization is medically necessary and the clinically appropriate intervention at this time. We will monitor medications and make changes as indicated. Likely length of stay is 7-10 days. Coding Level of Care Code Established Pt Acute Ingredient Mixer for Josee Aponte Patient Type Established History Problem Focused Exam Problem Focused Medical Decision Making Straight Forward Diagnoses Left leg pain M79.605 Psychosis F29 Schizophrenia F20.9 Chronic schizophrenia F20.9
[2022-05-04] MEDS: OLANZapine 10 mg TABLET PO (19:56)
[2022-05-04] MEDS: quetiapine 100 mg Tablet PO (19:56)
[2022-05-04] MEDS: OLANZapine 5 mg TABLET PO (19:56)
[2022-05-05 06:00] VITALS: BP 93/65; PULSE 82; RESP 14; TEMP 36.7; O2SAT 96
[2022-05-05] MEDS: levoFLOXacin 500 mg Tablet PO (06:08)
[2022-05-05] MEDS: nicotine 4 mg lozenge MUCOUS MEM ×3 (08:52→14:22)
[2022-05-05] MEDS: amoxicillin-clav 500-125 mg Tablet 1 TAB PO ×3 (08:53→20:12)
[2022-05-05] MEDS: cetylpyridinium Lozenge 1 EACH MUCOUS MEM (10:57)
[2022-05-05 14:00] VITALS: BP 145/92; PULSE 87; RESP 16; TEMP 37.2; O2SAT 97
--- NOTE | 2022-05-05 17:14 | P.NPUPN_ITS ---
Subjective NPU Subjective: Patient is a 41-year-old white male with schizophrenia admitted with disorganized behavior and active paranoia and delusions. Patient continued to isolate himself in the milieu. He had continued to appear suspicious of others intentions. He had minimized any problems while here and stated that he needed to return home. He had reported that he was able to sleep with his Zyprexa. He had reported that he did not wish to be on a monthly Zyprexa and he remained compliant with his oral medications here. He continued to struggle with completion of activities of daily living without prompting from staff. Mental Status Exam MSE Comments: This is an overweight white man in hospital scrubs with adequate grooming and limited eye contact. No abnormal movements except for mild psychomotor retardation. Cooperative with exam in mild distress. Speech was limited but more normal rate and volume. Mood described as good , affect is odd, subdued and mood incongruent Thought process : showed evidence of use of nonsequiters in speech, illogical, Thought content: , active paranoia, patient denies suicidal or homicidal ideation, Attention and concentration are mostly intact and memory appeared more reliable but none were formally tested. He is alert and oriented x3. Insight and judgment are impaired. Impulse control remains impaired. Vitals/I&O/Wt Last Vital Signs Temp 98.9 F 05/05/22 14:00 Pulse 87 05/05/22 14:00 Resp 16 05/05/22 14:00 BP 145/92 05/05/22 14:00 Pulse Ox 97 05/05/22 14:00 O2 Del Method 05/05/22 06:00 Data NPU : 05/03/22 19:05 05/03/22 19:05 Micro: Microbiology 05/03/22 19:09 Blood Culture - Preliminary Blood NEGATIVE TO DATE 05/03/22 19:05 Blood Culture - Preliminary Blood NEGATIVE TO DATE Microbiology 05/03/22 19:09 Blood Blood Culture - Preliminary NEGATIVE TO DATE 05/03/22 19:05 Blood Blood Culture - Preliminary NEGATIVE TO DATE A&P Assessment and plan (1) Left leg pain: (2) Psychosis: (3) Schizophrenia: (4) Chronic schizophrenia: Plan This is a 41 year old white man with a history of trauma and genetic loading for mental health and addiction issues who present very disorganized reporting he had drank and it was recommended that he come to the hospital by someone. 1. Continue current medications. Continue Zyprexa 15mg at night. Started Seroquel 100 mg p.o. nightly as patient seems to believe that has been effective in the past. 2. Encourage individual, group and milieu therapy 3. Continue q-15 minute check for safety 4. Recommend sober living treatment at the highest level of care to which the patient is willing to commit. 5. 21-day-hold granted 04/27/2022. 6. Recommend Zyprexa Relprev. Involuntary Hold Information 96 Hour Hold: 96 Hour Involuntary Admission: No Attestations NPU Medical Necessity Statement*: Inpatient hospitalization is medically necessary and the clinically appropriate intervention at this time. We will monitor medications and make changes as indicated. Likely length of stay is 7-10 days. Coding Level of Care Code Established Pt Acute Power Hammer Operator for Josee Aponte Patient Type Established History Problem Focused Exam Problem Focused Medical Decision Making Straight Forward Diagnoses Left leg pain M79.605 Psychosis F29 Schizophrenia F20.9 Chronic schizophrenia F20.9
[2022-05-05] MEDS: OLANZapine 10 mg TABLET 15 MG PO (20:12)
[2022-05-05] MEDS: quetiapine 100 mg Tablet PO (20:12)
[2022-05-05 21:06] VITALS: BP 120/75; PULSE 89; RESP 18; TEMP 36.7; O2SAT 96
--- NOTE | 2022-05-06 10:21 | W.PM.NPUPNS ---
Subjective NPU Subjective: Patient is a 41-year-old white male with schizophrenia admitted with disorganized behavior and active paranoia and delusions. Patient continued to isolate himself in the milieu. He had continued to appear suspicious of others intentions. The patient had described having been in multiple states having received treatment and stated that he did not wish to have any contact with his family but would rather move on towards [place]. He reports that he wished to simply be homeless and continue on his mission. He had reported having multiple medication trials for treating his psychosis . He denied any depressed mood. He continues to endorse struggles with concentration and memory. He reports that he had not showered in a few days. Mental Status Exam MSE Comments: This is an overweight white man in hospital scrubs with poor grooming and limited eye contact. No abnormal movements except for mild psychomotor retardation. Cooperative with exam in mild distress. Speech was normal in volume and normal in rate along with adequate productivity. His mood was described as good. His affect is odd, subdued and mood incongruent. Thought process : was illogical, tangential, and nongoal-directed. Thought content: , active paranoia, patient denies suicidal or homicidal ideation, Attention was variable. His recent and remote memory appeared more grossly intact though none were formally tested. He is alert and oriented x3. Insight and judgment are impaired. Impulse control remains impaired. Vitals/I&O/Wt Last Vital Signs Temp 98.1 F 05/05/22 21:06 Pulse 89 05/05/22 21:06 Resp 18 05/05/22 21:06 BP 120/75 05/05/22 21:06 Pulse Ox 96 05/05/22 21:06 O2 Del Method 05/05/22 06:00 Data NPU : 05/03/22 19:05 05/03/22 19:05 A&P Assessment and plan (1) Left leg pain: (2) Psychosis: (3) Schizophrenia: (4) Chronic schizophrenia: Plan This is a 41 year old white man with a history of trauma and genetic loading for mental health and addiction issues who present very disorganized reporting he had drank and it was recommended that he come to the hospital by someone. 1. Continue current medications. Continue Zyprexa 15mg at night. Continue seroquel 50mg at night. 2. Encourage individual, group and milieu therapy 3. Continue q-15 minute check for safety 4. Recommend sober living treatment at the highest level of care to which the patient is willing to commit. Patient may benefit from RTF. 5. 21-day-hold granted 04/27/2022. 6. Recommend Zyprexa Relprev. Involuntary Hold Information 96 Hour Hold: 96 Hour Involuntary Admission: No Attestations NPU Medical Necessity Statement*: Inpatient hospitalization is medically necessary and the clinically appropriate intervention at this time. We will monitor medications and make changes as indicated. Likely length of stay is 7-10 days. Coding Level of Care Code Established Pt Acute Business Integration Manager for Chg Fwd Patient Type Established History Problem Focused Exam Problem Focused Medical Decision Making Straight Forward Diagnoses Left leg pain M79.605 Psychosis F29 Schizophrenia F20.9 Chronic schizophrenia F20.9
[2022-05-06] MEDS: nicotine 4 mg lozenge MUCOUS MEM ×2 (11:42→20:41)
[2022-05-06 14:00] VITALS: BP 143/98; PULSE 88; RESP 16; TEMP 36.6; O2SAT 97
[2022-05-06] MEDS: nicotine 2 mg Gum BUCCAL (14:09)
--- NOTE | 2022-05-06 16:06 | PC.NURSE ---
Patient was speaking in an accent foreign from his own while on the phone with his [place]. He then yelled, I'm not going to let you do this to me again! When asked what had happened that upset him the patient said the company did not answer his call. He then walked quickly into the dayroom, stared out the window, lifted his hands, and yelled, the reeder and the SUN!
[2022-05-06] MEDS: OLANZapine 10 mg TABLET 15 MG PO (20:44)
[2022-05-06] MEDS: quetiapine 100 mg Tablet 50 MG PO (20:53)
[2022-05-06 22:00] VITALS: BP 113/66; PULSE 93; RESP 18; TEMP 36.6; O2SAT 95
[2022-05-07] MEDS: nicotine 4 mg lozenge MUCOUS MEM ×4 (08:53→20:42)
--- NOTE | 2022-05-07 09:30 | PC.NURSE ---
Patient having trouble staying on one topic of conversation. Patient went from talking obsessively about his card being gone, to his mom saying oh yeah, he may have schizophrenia, to whether he was going to stay in [place] when he got out, to a preacher giving him $20, and then to having visual hallucinations of a girl standing at a counter. Patient very calm, but unaware of his lack of concentration on one subject.
[2022-05-07] MEDS: nicotine 2 mg Gum BUCCAL (12:34)
[2022-05-07 14:00] VITALS: BP 137/89; PULSE 93; RESP 18; TEMP 36.7; O2SAT 96
[2022-05-07] MEDS: OLANZapine 10 mg TABLET 20 MG PO (20:25)
[2022-05-07] MEDS: quetiapine 25 mg Tablet PO (20:25)
--- NOTE | 2022-05-07 20:41 | P.NPUPN_ITS ---
Subjective NPU Subjective: Patient is a 41-year-old white male with schizophrenia admitted with disorganized behavior and active paranoia and delusions. He continued to report desire to be homeless and appeared extremely guarded and hostile when discussing his plans for how he would maintain himself on the outside without any funding. Patient had continued to appear irritated when asked about whether he would continue his medications. He continued to [place] and states that he would take a bus to [place] if he had to. He continued to struggle with completion of activities of daily living including showering. Mental Status Exam MSE Comments: This is an overweight white man in hospital scrubs with poor grooming and limited eye contact. No abnormal movements except for mild psychomotor retardation. Cooperative with exam in mild distress. Speech was normal in volume and normal in rate along with adequate productivity. His mood was described as good. His affect is odd, subdued and mood incongruent. Thought process : was illogical, tangential, and nongoal-directed. Thought content: , active paranoia, patient denies suicidal or homicidal ideation, Attention was variable. His recent and remote memory appeared more grossly intact though none were formally tested. He is alert and oriented x3. Insight and judgment are impaired. Impulse control remains impaired. Vitals/I&O/Wt Last Vital Signs Temp 98.0 F 05/07/22 14:00 Pulse 93 05/07/22 14:00 Resp 18 05/07/22 14:00 BP 137/89 05/07/22 14:00 Pulse Ox 96 05/07/22 14:00 O2 Del Method 05/06/22 22:00 Data NPU : 05/03/22 19:05 05/03/22 19:05 A&P Assessment and plan (1) Left leg pain: (2) Psychosis: (3) Schizophrenia: (4) Chronic schizophrenia: Plan This is a 41 year old white man with a history of trauma and genetic loading for mental health and addiction issues who present very disorganized reporting he had drank and it was recommended that he come to the hospital by someone. 1. Continue current medications. Increase Zyprexa to 20mg at night. Decrease Seroquel to 25 mg at night 2. Encourage individual, group and milieu therapy 3. Continue q-15 minute check for safety 4. Recommend sober living treatment at the highest level of care to which the patient is willing to commit. Patient may benefit from RTF. 5. 21-day-hold granted 04/27/2022. 6. Recommend Zyprexa Relprev. Involuntary Hold Information 96 Hour Hold: 96 Hour Involuntary Admission: No Attestations NPU Medical Necessity Statement*: Inpatient hospitalization is medically necessary and the clinically appropriate intervention at this time. We will monitor medications and make changes as indicated. Likely length of stay is 7-10 days. Coding Level of Care Code Established Pt Acute Educational Therapy Teacher for Harryg Fwd Patient Type Established History Problem Focused Exam Problem Focused Medical Decision Making Straight Forward Diagnoses Left leg pain M79.605 Psychosis F29 Schizophrenia F20.9 Chronic schizophrenia F20.9
[2022-05-07] MEDS: cetylpyridinium Lozenge 1 EACH MUCOUS MEM (21:27)
--- NOTE | 2022-05-08 06:25 | PC.NURSE ---
pt refused AM vitals.
[2022-05-08] MEDS: nicotine 4 mg lozenge MUCOUS MEM ×3 (10:35→19:39)
[2022-05-08 14:00] VITALS: BP 147/91; PULSE 88; RESP 20; TEMP 36.4; O2SAT 96
[2022-05-08] MEDS: nicotine 2 mg Gum BUCCAL (14:11)
--- NOTE | 2022-05-08 17:42 | P.NPUPN_ITS ---
Subjective NPU Subjective: Patient is a 41-year-old white male with schizophrenia admitted with disorganized behavior and active paranoia and delusions. Continue to isolate himself on the milieu. He continued to report having plans of living outside homeless without any nursing home. He had continue to remain extremely gu arded when discussing his ability to maintain care including paying for food when he leaves here. He had reported no social supports. He reported though that he had money and buckets. He continued to struggle with completion of activities of daily living. He had reported that he did not wish to take any long-acting Zyprexa and stated that the Seroquel was fine. He had reported having been previously placed on high doses of Seroquel without any effectiveness in treating his problems. Mental Status Exam MSE Comments: This is an overweight white man in hospital scrubs with poor grooming and limited eye contact lying in bed. He continue to show evidence of psychomotor retardation. He was cooperative with exam and appeared annoyed at the contract technical writer of this note. His speech was normal in volume and normal in rate along with adequate productivity. His mood was described as good. His affect is odd, subdued and mood incongruent. Thought process : was illogical, tangential, and not directed at all. Thought content: , active paranoia, patient denies suicidal or homicidal ideation, Attention was variable. His recent and remote memory appeared more grossly intact though none were formally tested. He is alert and oriented x3. Insight and judgment are feeble. Impulse control remains impaired. Vitals/I&O/Wt Last Vital Signs Temp 97.5 F L 05/08/22 14:00 Pulse 88 05/08/22 14:00 Resp 20 H 05/08/22 14:00 BP 147/91 05/08/22 14:00 Pulse Ox 96 05/08/22 14:00 O2 Del Method 05/06/22 22:00 Data NPU : 05/03/22 19:05 05/03/22 19:05 A&P Assessment and plan (1) Left leg pain: (2) Psychosis: (3) Schizophrenia: (4) Chronic schizophrenia: Plan This is a 41 year old white man with a history of trauma and genetic loading for mental health and addiction issues who present very disorganized reporting he had drank and it was recommended that he come to the hospital by someone. 1. Continue current medications. Continue Zyprexa at 20mg at night. Discontinue Seroquel. 2. Encourage individual, group and milieu therapy 3. Continue q-15 minute check for safety 4. Recommend sober living treatment at the highest level of care to which the patient is willing to commit. Patient may benefit from RTF. 5. 21-day-hold granted 04/27/2022. 6. Recommend Zyprexa Relprev, patient refusing. Involuntary Hold Information 96 Hour Hold: 96 Hour Involuntary Admission: No Attestations NPU Medical Necessity Statement*: Inpatient hospitalization is medically necessary and the clinically appropriate intervention at this time. We will monitor medications and make changes as indicated. Likely length of stay is 7-10 days. Coding Level of Care Code Established Pt Acute Shaker Repairer for Josee Aponte Patient Type Established History Problem Focused Exam Problem Focused Medical Decision Making Straight Forward Diagnoses Left leg pain M79.605 Psychosis F29 Schizophrenia F20.9 Chronic schizophrenia F20.9
[2022-05-08 20:08] VITALS: BP 130/60; PULSE 95; RESP 18; TEMP 36.8; O2SAT 96
[2022-05-08] MEDS: OLANZapine 10 mg TABLET 20 MG PO (20:27)
[2022-05-09 06:00] VITALS: RESP 16
[2022-05-09] MEDS: nicotine 2 mg Gum BUCCAL (10:52)
[2022-05-09] MEDS: nicotine 4 mg lozenge MUCOUS MEM ×2 (13:37→17:51)
[2022-05-09 13:39] VITALS: BP 132/87; PULSE 89; RESP 16; TEMP 36.9; O2SAT 96
--- NOTE | 2022-05-09 14:31 | W.PM.NPUPNS ---
Subjective NPU Subjective: Patient is a 41-year-old white male with schizophrenia admitted with disorganized behavior and active paranoia and delusions. He continued to isolate himself on the milieu. He reported that he was ready to take a bus and go somewhere when he was discharged from here. Patient when asked how this would be done was unable to provide any concrete plan as to how he would obtain money or utilize any resources to care for himself at this time. He he denied any mood symptoms at this time. He had reported adequate sleep. Mental Status Exam MSE Comments: This is an overweight white man in hospital scrubs with poor grooming and limited eye contact lying in bed. He continue to show evidence of psychomotor retardation. He was minimally cooperative and appeared disinterested on interview. His speech was rambling. His mood was described as good. His affect is odd, subdued and mood incongruent. Thought process : was illogical, tangential, and not directed at all. Thought content: , active paranoia, clear bizarre delusions noted. patient denies suicidal or homicidal ideation, Attention was variable. His recent and remote memory appeared more grossly intact. none He is alert and oriented x3. Insight and judgment are feeble. Impulse control remains impaired. Vitals/I&O/Wt Last Vital Signs Temp 98.4 F 05/09/22 13:39 Pulse 89 05/09/22 13:39 Resp 16 05/09/22 13:39 BP 132/87 05/09/22 13:39 Pulse Ox 96 05/09/22 13:39 O2 Del Method 05/06/22 22:00 Data NPU : 05/03/22 19:05 05/03/22 19:05 Micro: Microbiology 05/03/22 19:09 Blood Culture - Final Blood NO GROWTH AFTER 5 DAYS 05/03/22 19:05 Blood Culture - Final Blood NO GROWTH AFTER 5 DAYS Microbiology 05/03/22 19:09 Blood Blood Culture - Final NO GROWTH AFTER 5 DAYS 05/03/22 19:05 Blood Blood Culture - Final NO GROWTH AFTER 5 DAYS A&P Assessment and plan (1) Left leg pain: (2) Psychosis: (3) Schizophrenia: (4) Chronic schizophrenia: Plan This is a 41 year old white man with a history of trauma and genetic loading for mental health and addiction issues who present very disorganized reporting he had drank and it was recommended that he come to the hospital by someone. 1. Continue current medications. Continue Zyprexa at 20mg at night. Discontinue Seroquel. 2. Encourage individual, group and milieu therapy 3. Continue q-15 minute check for safety 4. Recommend sober living treatment at the highest level of care to which the patient is willing to commit. Patient may benefit from RTF. OT assessment/Kells to determine independent living ability. 5. 21-day-hold granted 04/27/2022. 6. Recommend Zyprexa Relprev, patient refusing. Involuntary Hold Information 96 Hour Hold: 96 Hour Involuntary Admission: No Attestations NPU Medical Necessity Statement*: Inpatient hospitalization is medically necessary and the clinically appropriate intervention at this time. We will monitor medications and make changes as indicated. Likely length of stay is 7-10 days. Coding Level of Care Code Established Pt Acute Signs And Displays Sales Representative for Josee Fwrachel Patient Type Established History Problem Focused Exam Problem Focused Medical Decision Making Straight Forward Diagnoses Left leg pain M79.605 Psychosis F29 Schizophrenia F20.9 Chronic schizophrenia F20.9
[2022-05-09 20:09] VITALS: BP 133/86; PULSE 100; RESP 17; TEMP 36.9; O2SAT 95
[2022-05-09] MEDS: OLANZapine 10 mg TABLET 20 MG PO (20:27)
[2022-05-10 06:00] VITALS: RESP 17
[2022-05-10] MEDS: nicotine 4 mg lozenge MUCOUS MEM ×3 (10:39→18:06)
--- NOTE | 2022-05-10 13:07 | W.PM.NPUPNS ---
Subjective NPU Subjective: Patient is a 41-year-old white male with schizophrenia admitted with disorganized behavior and active paranoia and delusions. Once again he spent much of the day outside in his room in the dark. He reported that he was ready to return to being homeless. He continued to struggle with routine activities of daily living although he had been eating and drinking fluids. He again appeared to be unable to provide any insight in regards to why he had been initially hospitalized stating that the government had wanted him in here at the NPU. Mental Status Exam MSE Comments: This is an overweight white man in hospital scrubs with poor grooming and limited eye contact lying in bed. He continue to show evidence of psychomotor retardation. He was minimally cooperative and appeared disinterested on interview. His speech was monotone in quality and more organized today. His mood was described as pretty good. His affect is odd, subdued and mood incongruent. Thought process : was illogical, tangential, and not directed at all. Thought content: no active paranoia, clear bizarre delusions noted. patient denies suicidal or homicidal ideation, Attention was variable. His recent and remote memory appeared more grossly intact. none He is alert and oriented x3. Insight and judgment are feeble. Impulse control remains impaired. Vitals/I&O/Wt Last Vital Signs Temp 98.4 F 05/09/22 20:09 Pulse 100 05/09/22 20:09 Resp 17 05/10/22 06:00 BP 133/86 05/09/22 20:09 Pulse Ox 95 05/09/22 20:09 O2 Del Method 05/06/22 22:00 Weight last 48 hrs Weight 109.86 kg Data NPU : 05/03/22 19:05 05/03/22 19:05 A&P Assessment and plan (1) Schizophrenia: (2) Psychosis: (3) Chronic schizophrenia: (4) Left leg pain: Plan This is a 41 year old white man with a history of trauma and genetic loading for mental health and addiction issues who present very disorganized reporting he had drank and it was recommended that he come to the hospital by someone. 1. Continue current medications. Continue Zyprexa at 20mg at night. 2. Encourage individual, group and milieu therapy 3. Continue q-15 minute check for safety 4. Recommend sober living treatment at the highest level of care to which the patient is willing to commit. Patient may benefit from RTF. OT assessment/Kells to determine independent living ability. 5. 21-day-hold granted 04/27/2022. 6. Recommend Zyprexa Relprev, patient refusing. Involuntary Hold Information 96 Hour Hold: 96 Hour Involuntary Admission: No Attestations NPU Medical Necessity Statement*: Inpatient hospitalization is medically necessary and the clinically appropriate intervention at this time. We will monitor medications and make changes as indicated. Likely length of stay is 5-7 days. Coding Level of Care Code Established Pt Acute Defensive Driving Instructor for Chg Fwd Patient Type Established History Problem Focused Exam Problem Focused Medical Decision Making Straight Forward Diagnoses Schizophrenia F20.9 Psychosis F29 Chronic schizophrenia F20.9 Left leg pain M79.399
[2022-05-10] MEDS: nicotine 2 mg Gum BUCCAL (13:10)
[2022-05-10 14:00] VITALS: BP 125/88; PULSE 111; RESP 16; TEMP 36.7; O2SAT 95
[2022-05-10] MEDS: OLANZapine 10 mg TABLET 20 MG PO (19:46)
[2022-05-10 22:00] VITALS: BP 138/91; PULSE 112; RESP 18; TEMP 36.7; O2SAT 96
[2022-05-11] MEDS: nicotine 4 mg lozenge MUCOUS MEM ×3 (09:49→18:42)
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
[2022-05-11 14:00] VITALS: BP 113/76; PULSE 98; RESP 17; TEMP 37.1; O2SAT 97
[2022-05-11] MEDS: acetaminophen 325 mg Tablet 650 MG PO (14:45)
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
[2022-05-11 20:28] VITALS: BP 149/93; PULSE 90; RESP 18; TEMP 36.6; O2SAT 95
[2022-05-11] MEDS: OLANZapine 10 mg TABLET 20 MG PO (21:11)
--- NOTE | 2022-05-12 11:37 | DCPLANNER ---
Imm was printed, given and explained to pt and copy placed in his chart.
[2022-05-12] MEDS: nicotine 4 mg lozenge MUCOUS MEM (11:49)
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
[2022-05-12 12:39] VITALS: BP 149/93; PULSE 90; RESP 18; TEMP 36.6; O2SAT 95
== END 2022-05-12 15:30 | disposition home or self-care (01) | DRG 885 ==
LOC: ER 14:20 → NP 22:21
PROVIDERS: Internal Medicine; Student in an Organized Health Care Education/Training Program; Admitting Provider Psychiatry & Neurology Psychiatry; Emergency Provider Emergency Medicine; Visit Provider Psychiatry & Neurology Psychiatry
DX: F20.9 Schizophrenia, unspecified (principal); F17.210 Nicotine dependence, cigarettes, uncomplicated; Z81.8 Family history of other mental and behavioral disorders; Z59.00 Homelessness unspecified; I10 Essential (primary) hypertension; M79.605 Pain in left leg; R50.9 Fever, unspecified
CPT/HCPCS: 36415; 70450; 71045; 73590; 73630; 80053; 80306; 80307; 81003; 82746; 82947; 83690; 84439; 84443; 85025; 87040; 87635; 93970; 96361; 96374; 97150; 97165; 99283; 99285; J3411; J7030